=== PATIENT | female | born 1935 | race Caucasian/White ===

== ENCOUNTER → 2023-04-08 12:53 | Outpatient (REF) | payer MEDICARE, OTHER, SELFPAY | LOC: DHCBS MAIN 12:53 | PROVIDERS: ATTENDING PHYSICIAN Internal Medicine Cardiovascular Disease; FAMILY PHYSICIAN Internal Medicine | DX: I34.0 Nonrheumatic mitral (valve) insufficiency (principal) | CPT/HCPCS: 93306 ==

== ENCOUNTER 2023-06-12 10:38 | Emergency (ER) | payer MEDICARE, OTHER, SELFPAY ==
--- NOTE | 2023-06-12 10:48 | ED.GENMED ---
History of Present Illness
<Molly Chowdary SUPERVISOR TELEPHONE CLERKS - Last Filed: 06/13/23 09:14>
General
Chief Complaint: Heart Rate Problem
Source: patient and ambulance crew
Exam Limitations: none
Time Seen by Provider: 06/12/23 10:40
Nursing documentation reviewed up to this point in time: agreed with
History of Present Illness
History of Present Illness:
87-year-old female with history of atrial fibrillation on Xarelto, HTN, HLD, pacemaker, GERD, hypothyroid presents via EMS. Patient states around 7:30 AM she felt gradual onset of shortness of breath, dizziness and called EMS. En route EMS gave
her Cardizem 10 mg IV for a heart rate between 120 and 160. She also received normal saline solution IV 700 mL en route. She arrives with heart rate now 106 and she feels much better. She denies having chest pain.
Patient states she had ablation 'years ago' and has been in normal sinus rhythm since until today.
Past History
<Molly Chowdary, SUPERVISOR TELEPHONE CLERKS - Last Filed: 06/13/23 09:14>
Past History
ED Past Medical History: Arrthythmia, GERD, HTN, Valvular disease and Hypothyroidism
ED Past Surgical History: Cardiac (pacemaker) and Tonsilectomy
Social History
Tobacco: Non-smoker
Alcohol: None
Personal: Single
Living: assisted living
Review of Systems
<Molly Chowdary, SUPERVISOR TELEPHONE CLERKS - Last Filed: 06/13/23 09:14>
Review of Systems
Allergies reviewed?: Yes
All Other Systems: ROS reviewed and negative except as documented in HPI and ROS
Constitutional: Reports fatigue; Denies fever
Respiratory: Denies trouble breathing
Cardiac: Denies chest pain, diaphoresis or syncope
ABD/GI: Denies abdominal pain, nausea, vomiting or diarrhea
: Denies dysuria, frequency, difficulty voiding or urgency
Musculoskeletal: Reports no symptoms
Skin: Reports no symptoms
Neurological: Reports other ('a little lighheaded'); Denies headache or numbness
Phy Exam
<oMlly Chowdary SUPERVISOR TELEPHONE CLERKS - Last Filed: 06/13/23 09:14>
Physical Exam
Physical Exam:
GENERAL: No acute distress. A&Ox3.
CONSTITUTIONAL: Afebrile.
EYES: PERRL, conjunctivae normal
ENMT: moist mucus membranes, Pharynx nl
RESPIRATORY: Regular respirations, nonlabored, lungs clear.
CARDIOVASCULAR: Irregular rhythm. rate on bedside monitor 102-130's. A fib with intermittent paced beats. no murmurs, no rubs.
GI: Soft, nontender, normal BS
MUSCULOSKELETAL: Moves with ease. Well perfused. No edema
SKIN: Warm, dry, pink
PSYCH: Normal mood and affect. Well kept, interactive and appropriate
NEUROLOGIC: Awake, alert and oriented. No focal neurological deficits
Course
<Molly Chowdary, SUPERVISOR TELEPHONE CLERKS - Last Filed: 06/13/23 09:14>
Orders/Labs/Results
Orders:
Orders
06/12/23 10:47
Electrocardiogram (*1) Urgent
Reason for Study: Atrial Fibrillation
EKG- Treatment ONCE
06/12/23 10:48
CR Chest - 2 Views Urgent
Comment:
Reason For Exam: a fib rvr
06/12/23 11:15
Complete Blood Count/With Diff Urgent
06/12/23 11:24
EKG [Electrocardiogram (*1)] Urgent
Reason for Study: Abnormal EKG
EKG- Treatment ONCE
06/12/23 12:10
Comprehensive Metabolic Panel Urgent
NT-proBNP Urgent
Comment: ADD ON
TSH Reflex To Free T4 Urgent
Comment: ADD ON
Troponin I Urgent
06/12/23 12:49
Add On- LAB Urgent
Tests Added?: TSH Reflex to Free T4
06/12/23 13:45
Add On- LAB Urgent
Tests Added?: BNP
Abnormal Lab Results
06/12/23 06/12/23
11:15 12:10
RBC 3.94 L 10^6/uL
(4.20-5.40)
Hct 34.5 L %
(37.0-47.0)
MPV 10.6 H fL
(7.4-10.4)
Lymphocytes % 17.6 L %
(20.5-51.1)
Sodium 132 L mmol/L
(135-145)
Glucose 121 H mg/dl
(70-99)
AST 38 H U/L
(14-36)
06/12/23 11:15
06/12/23 12:10
Vital Signs
Initial and Last Documented VS:
Initial Vital Signs
Temp Pulse Resp BP Pulse Ox
97.7 F 109 20 124/74 95
06/12/23 10:57 06/12/23 10:57 06/12/23 10:57 06/12/23 10:57 06/12/23 10:57
Last Documented Vital Signs
Temp Pulse Resp BP Pulse Ox
97.7 F 73 23 122/69 94
06/12/23 10:57 06/12/23 14:07 06/12/23 14:00 06/12/23 14:07 06/12/23 14:00
<Klaus Vizcaino MD - Last Filed: 06/12/23 12:10>
Orders/Labs/Results
Orders:
Orders
06/12/23 10:47
Electrocardiogram (*1) Urgent
Reason for Study: Atrial Fibrillation
EKG- Treatment ONCE
06/12/23 10:48
CR Chest - 2 Views Urgent
Comment:
Reason For Exam: a fib rvr
06/12/23 11:15
Complete Blood Count/With Diff Urgent
06/12/23 11:24
EKG [Electrocardiogram (*1)] Urgent
Reason for Study: Abnormal EKG
EKG- Treatment ONCE
06/12/23 12:10
Comprehensive Metabolic Panel Urgent
NT-proBNP Urgent
Comment: ADD ON
TSH Reflex To Free T4 Urgent
Comment: ADD ON
Troponin I Urgent
06/12/23 12:49
Add On- LAB Urgent
Tests Added?: TSH Reflex to Free T4
06/12/23 13:45
Add On- LAB Urgent
Tests Added?: BNP
Abnormal Lab Results
06/12/23 06/12/23
11:15 12:10
RBC 3.94 L 10^6/uL
(4.20-5.40)
Hct 34.5 L %
(37.0-47.0)
MPV 10.6 H fL
(7.4-10.4)
Lymphocytes % 17.6 L %
(20.5-51.1)
Sodium 132 L mmol/L
(135-145)
Glucose 121 H mg/dl
(70-99)
AST 38 H U/L
(14-36)
06/12/23 11:15
06/12/23 12:10
Vital Signs
Initial and Last Documented VS:
Initial Vital Signs
Temp Pulse Resp BP Pulse Ox
97.7 F 109 20 124/74 95
06/12/23 10:57 06/12/23 10:57 06/12/23 10:57 06/12/23 10:57 06/12/23 10:57
Last Documented Vital Signs
Temp Pulse Resp BP Pulse Ox
97.7 F 73 23 122/69 94
06/12/23 10:57 06/12/23 14:07 06/12/23 14:00 06/12/23 14:07 06/12/23 14:00
<Molly Chowdary NP - Last Filed: 06/13/23 09:14>
MDM/Problems Addressed
Differential Diagnosis Includes:
Afib w RVR, Vtach RVR so she had Cardizem. She presents
MDM/Problems Addressed:
87-year-old female with history of atrial fibrillation on Xarelto, HTN, HLD, pacemaker, GERD, hypothyroid presents via EMS. Patient states around 7:30 AM she felt gradual onset of shortness of breath, dizziness and called EMS. En route EMS gave
her Cardizem 10 mg IV for a heart rate between 120 and 160. She also received normal saline solution IV 700 mL en route. She arrives with heart rate now 106 and she feels much better. She denies having chest pain.
Patient states she had ablation 'years ago' and has been in normal sinus rhythm since until today.
Irregular rhythm. rate on bedside monitor 102-130's. A fib with intermittent paced beats.
NAD
EKG showing atrial fibrillation with RVR and frequent ventricular paced complexes
Dr. Vizcaino at bedside.
Pacemaker interrogated and report pending.
1:40 PM
Labs with no clinically significant abnormality.
Initial troponin was hemolyzed so had to be redrawn: Troponin within normal limits
Chest x-ray: Radiology report reviewed: IMPRESSION:
Patchy airspace disease seen bilaterally suggests diffuse pneumonia, although there may be a component which is chronic. There appears to be a component of CHF as well.
Pt has hx of interstitial lung disease. Is on Lasix.Denies any worsening of her breathing status. Stable for discharge
Pulse ox 95% RA
Pt stable for discharge
Pacer interrogation report read and filed. Nothing needing immediate attention
BNP unremarkable
I made an appointment with Dr. Borja for the patient on June 17 at 3:40 PM. for follow up.
At discharge patient ambulated out with normal gait with a family member
<Molly Cohwdary SUPERVISOR TELEPHONE CLERKS - Last Filed: 06/13/23 09:14>
*Critical Care Note
Total Time (30-74mins, 75-104mins- exclusive of procedures): Not Applicable
ED Attending Note
<Molly Chowdary SUPERVISOR TELEPH[employer] CLERKS - Last Filed: 06/13/23 09:14>
-
Portions of this chart may have been created with voice recognition software.� Occasional wrong word or��sound alike� substitutions may have occurred due to the inherent limitations of voice recognition software.
<Klaus Vizcaino MD - Last Filed: 06/12/23 12:10>
ED Attending Note
Patient seen and examined by attending physician: Yes
ED Attending Note:
I have seen and evaluated the patient with a sgea-[id number] encounter. I have spoken to the advance practicer provider and involved in the medical history, the physical exam, medical decision making.
Evaluation and management service: agree unless noted differently below.
Results interpretation: agree unless noted differently below.
Focused HPI: 87-year-old female with a history of hypertension, hyperlipidemia, atrial fibrillation on Xarelto, pacemaker who follows with Dr. Borja for cardiology who presents to the emergency room for evaluation of dizziness and shortness of
breath, found to be in A-fib with RVR. She received 10 mg of IV diltiazem from EMS as well as 700 cc of normal saline. She denies any chest pain. Denies any other complaints. Reports compliance with all medications.
Physical exam: Awake and alert not in distress. Normotensive. Tachycardic with irregularly irregular rhythm. She has no tachypnea, breathing comfortably not in distress. She is afebrile. Appropriate saturation on room air. She has good pulses
in all extremities, no edema in her lower extremities.
Medical Decision Makin-year-old female presents with dizziness and shortness of breath since she woke up this morning; noted to be in A-fib with RVR. She does have a known history of A-fib but says she has not been in A-fib since an ablation
years ago. She follows with Dr. Borja for cardiology. Plan to place an IV check labs including a CBC and a CMP, troponin, thyroid studies. Check chest x-ray. Interrogate device. Monitor closely reassess after the above.
Shortly after initial assessment patient converted to atrial paced rhythm with heart rate in the 70s. Symptoms resolved with resolution of A-fib. Awaiting results of labs and chest x-ray but if workup reassuring and patient remains asymptomatic.
Will plan to likely discharge with cardiology referral given resolution of A-fib.
Discharge Plan
Departure
Patient Disposition: Home (Routine Discharge)
Date of Disposition: 06/12/23
Time of Disposition: 13:59
Patient with high blood pressure during this ER visit?: No
Condition: Good
Discharge Problem:
Atrial fibrillation with rapid ventricular response
Instructions: Atrial Fibrillation (DC)
Prescriptions:
No Action
diphenhydramine-acetaminophen 1 TAB tablet
1 tab PO HSPRN PRN (Reason: sleep)
cholecalciferol (vitamin D3) 1,000 UNITS tablet
1,000 units PO DAILY
atorvastatin 10 MG tablet
10 mg PO HS Qty: 0 0RF
metoprolol succinate 50 MG tablet extended release 24 hr
50 mg PO BID Qty: 0 0RF
furosemide [Lasix] 40 mg Tablet
40 mg PO DAILY
omeprazole 40 mg Capsule,Delayed Release(Dr/Ec)
40 mg PO DAILY
levothyroxine [Synthroid] 100 mcg Tablet
100 mcg PO DAILY
ascorbic acid (vitamin C) [Vitamin C] 500 mg Tablet
500 mg PO DAILY
Xarelto 20 mg Tablet
20 mg PO QPM
Referrals:
Kleber Borja MD [Active] - Keep scheduled appt
NONE,* [Active] -
Activity Restrictions/Additional Instructions:
As we discussed you converted from atrial fibrillation with rapid response to normal sinus, no further treatment needed.
I have made a follow up appointment for June 17 at 3:[address] Borja.
At that visit ask if it's ok to keep the June appointment for your pacemaker.
Return here immediately for chest pain, shortness of breath, feeling weak or dizzy or feeling sicker in any way.
Interventions
Interventions:
*Risk Screen - Suicide Last Done: 06/12/23 11:00
*General Assessment Last Done: 06/12/23 11:17
*Neglect/Abuse Screening Last Done: 06/12/23 11:00
ED- Fall Risk Assessment Last Done: 06/12/23 14:38
*ED COVID-19 Vaccine History Last Done: 06/12/23 11:17
*Nursing Disposition Last Done: 06/12/23 14:38
ED- Cardiac Assessment Last Done: 06/12/23 11:17
ED- Pulmonary Assessment Last Done: 06/12/23 11:17
Discharge Date and Time
Discharge Date/Time: 06/12/23 14:41
Print Language: [place]
[2023-06-12 10:57] VITALS: BP 124/74
[2023-06-12 11:00] VITALS: BP 118/85
[2023-06-12 11:26] LABS: % Basophils 0.6 % (0-2); % Eosinophils 1.6 % (0-6); % Immature Granulocytes 0.1 % (0-0.5); % Lymphocytes 17.6 % (20.5-51.1); % Monocytes 5.5 % (1.7-9.3); % Neutrophils 74.6 % (42.2-75.2); Absolute Basophils 0.1 10^3/uL (0-0.2); Absolute Eosinophils 0.1 10^3/uL (0-0.7); Absolute Lymphocytes 1.4 10^3/uL (1.2-3.4); Absolute Monocytes 0.4 10^3/uL (0.1-0.6); Absolute Neutrophils 5.9 10^3/uL (1.4-6.5); Hematocrit 34.5 % (37.0-47.0); Hemoglobin 12.2 g/dL (12.0-16.0); Mean Corp Hgb Conc. 35.4 g/dL (33.0-37.0); Mean Corpuscular Volume 87.6 fL (81.0-99.0); Mean Platelet Volume 10.6 fL (7.4-10.4); Nucleated Red Blood Cells % 0 %; Platelet Count 259 10^3/uL (130-400); Red Blood Cell Count 3.94 10^6/uL (4.20-5.40); Red Cell Dist. Width 13.4 % (11.5-14.5); White Blood Cell Count 7.9 10^3/uL (4.8-10.8)
[2023-06-12 12:32] LABS: ALT (SGPT) 20 U/L (0-35); AST (SGOT) 38 U/L (14-36); Albumin 4.1 g/dl (3.5-5.0); Alkaline Phosphatase 77 U/L (38-126); Blood Urea Nitrogen 15 mg/dl (7-17); Calcium 9.7 mg/dl (8.4-10.2); Carbon Dioxide 27 mmol/L (22-30); Chloride 101 mmol/L (98-107); Glucose 121 mg/dl (70-99); Potassium 4.4 mmol/L (3.5-5.1); Sodium 132 mmol/L (135-145); Total Bilirubin 0.7 mg/dl (0.2-1.3); Total Protein 7.8 g/dl (6.3-8.2); eGFR > 60.00
[2023-06-12 12:43] LABS: Troponin I < 0.012 ng/ml
[2023-06-12 14:07] VITALS: BP 122/69
[2023-06-12 14:43] LABS: TSH Reflex To Free T4 0.72 uIU/ml (0.47-4.68)
[2023-06-12 14:50] LABS: NT-proBNP 1210 pg/ml
== END 2023-06-12 14:41 | disposition home or self-care (01) ==
LOC: EMR 10:38
PROVIDERS: Registered Nurse; EMERGENCY PHYSICIAN Emergency Medicine; FAMILY PHYSICIAN Internal Medicine
DX: I48.91 Unspecified atrial fibrillation (principal); I10 Essential (primary) hypertension; E78.00 Pure hypercholesterolemia, unspecified; K21.9 Gastro-esophageal reflux disease without esophagitis; E03.9 Hypothyroidism, unspecified; Z79.01 Long term (current) use of anticoagulants
CPT/HCPCS: 99285; 93288; 71046; 80053; 83880; 84443; 84484; 85025; 93005

== ENCOUNTER 2023-07-02 11:32 | Day surgery (SDC) | payer MEDICARE, OTHER, SELFPAY ==
[2023-07-02] VITALS (10 sets, daily range): BP systolic 115–155; BP diastolic 57–73; BMI 21.8
--- NOTE | 2023-07-02 14:11 | ITS.CL.PACE ---
Hand Folder - Pacemaker Implant
Pacemaker Implant
Procedure Report:
Date of Procedure: July 02, 2023
Patient : [id number]
Procedure: Pacemaker Implantation.
Indication: Pacemaker generator at [employer]
Implants:
Pulse Generator: Medtronic; Model# W1 DR 01; SN: [id number]
RA Lead: Medtronic; Model# 5086 MRI; SN: [id number]
RV Lead: Medtronic; Model# 5086 MRI; SN: [id number]
Technique: A time out was performed. The procedure site was identified. The patient was anesthetized by the anesthesia service. Preoperative sedation was administered. The patient was prepped and draped in the usual fashion. Local anesthetic was
applied to the left prepectoral subcutaneous tissue. The chronic 3 inch incision was made 2.5 inches below the left clavicle. A subcutaneous pocket was entered with blunt and sharp dissection and hemostasis controlled with Bovie cautery. The
chronic generator was removed from the chronic leads and removed from the field. The new generator was brought to the field and secured to the chronic leads. The device and leads were placed in the chronic pocket which was subcutaneous. The leads
were appropriately attached to the device. The pocket was irrigated with antibiotic solution. The device and leads were placed in the pocket. The incision was closed in three layers with absorbable suture. The estimated blood loss was minimal. There
were no complications.
Lead Analysis:
RA lead: P: 1.2 mV; Threshold: 0.5 V @ 0.5 ms; Impedance: 380 ohms.
RV lead: R: 4.1 mV; Threshold: 1.0 V @ 0.5 ms; Impedance: 456 ohms.
Final Programming: AAIR�DDDR 60-130 beats a minute
Conclusion: Uncomplicated Medtronic pacemaker implant.
Recommendation: Routine post pacemaker care.
== END 2023-07-02 15:35 | disposition home or self-care (01) ==
LOC: CATH 11:32
PROVIDERS: ATTENDING PHYSICIAN Internal Medicine Cardiovascular Disease; FAMILY PHYSICIAN Family Medicine; OTHER PHYSICIAN Internal Medicine Cardiovascular Disease
DX: Z45.010 Encounter for checking and testing of cardiac pacemaker pulse generator [battery] (principal); I49.5 Sick sinus syndrome; I48.0 Paroxysmal atrial fibrillation; I10 Essential (primary) hypertension; E78.5 Hyperlipidemia, unspecified; I34.0 Nonrheumatic mitral (valve) insufficiency; I27.20 Pulmonary hypertension, unspecified; Z79.01 Long term (current) use of anticoagulants
CPT/HCPCS: 33228; C1785

== ENCOUNTER 2023-07-31 06:56 | Day surgery (SDC) | payer MEDICARE, OTHER, SELFPAY ==
[2023-07-26 08:53] VITALS: BMI 22.1
[2023-07-26 09:41] LABS: % Basophils 0.4 % (0-2); % Eosinophils 1.4 % (0-6); % Immature Granulocytes 0.3 % (0-0.5); % Lymphocytes 20.9 % (20.5-51.1); % Monocytes 9.2 % (1.7-9.3); % Neutrophils 67.8 % (42.2-75.2); Absolute Eosinophils 0.1 10^3/uL (0-0.7); Absolute Lymphocytes 1.5 10^3/uL (1.2-3.4); Absolute Monocytes 0.6 10^3/uL (0.1-0.6); Absolute Neutrophils 4.7 10^3/uL (1.4-6.5); Hematocrit 34.6 % (37.0-47.0); Hemoglobin 11.7 g/dL (12.0-16.0); Mean Corp Hgb Conc. 33.8 g/dL (33.0-37.0); Mean Corpuscular Hgb 30.2 pg (27.0-31.0); Mean Corpuscular Volume 89.4 fL (81.0-99.0); Mean Platelet Volume 9.3 fL (7.4-10.4); Nucleated Red Blood Cells % 0 %; Platelet Count 250 10^3/uL (130-400); Red Blood Cell Count 3.87 10^6/uL (4.20-5.40); Red Cell Dist. Width 13.7 % (11.5-14.5)
[2023-07-26 09:58] LABS: INR 1.73; PT 20.1 Sec (11.4-14.6)
[2023-07-26 10:45] LABS: ALT (SGPT) 16 U/L (0-35); AST (SGOT) 33 U/L (14-36); Albumin 3.9 g/dl (3.5-5.0); Alkaline Phosphatase 67 U/L (38-126); Blood Urea Nitrogen 10 mg/dl (7-17); Calcium 9.7 mg/dl (8.4-10.2); Carbon Dioxide 24 mmol/L (22-30); Chloride 93 mmol/L (98-107); Estimated Creatinine Clearance 54 ml/min; Glucose 99 mg/dl (70-99); Potassium 4.9 mmol/L (3.5-5.1); Sodium 127 mmol/L (135-145); Total Bilirubin 0.8 mg/dl (0.2-1.3); Total Protein 7.5 g/dl (6.3-8.2); eGFR > 60.00
--- NOTE | 2023-07-26 10:53 | HPS.HSE ---
Family Physician
-
Family Physician: Abelardo Garber DO
Chief Complaint
-
Mitral valve regurgitation.
History of Present Illness
The patient is an 87 year old female presenting today with a history of mitral valve regurgitation. Her valvular disease has been followed with serial echocardiograms over the course of several years. As of recently, she has reported
symptoms suggesting heart failure, specifically shortness of breath that is worse with exertion. It is suspected that her symptoms are stemming from her mitral regurgitation. She has noted some improvement in her shortness of breath with the start
of daily Furosemide. It is recommended, however, that she undergo a transesophageal echocardiogram and right and left cardiac catheterization to assess her need for a possible mitral valve repair or mitral clip in the near future. She denies any
current complaints today such as chest pain, shortness of breath at rest, nausea, vomiting, diarrhea, lightheadedness, dizziness, cough, sore throat, or fever.
Medical History
Past Medical History
Past Medical History: Reports Other
Additional Past Medical History:
1. Mitral valve regurgitation, moderate on echocardiogram 03/2023.
2. Hypertension.
3. Hyperlipidemia.
4. Non-obstructive coronary artery disease on previous cath.
5. Paroxysmal atrial fibrillation, status post ablation 2016; pharmacological therapy with Metoprolol Succinate, oral anticoagulation with Xarelto.
6. Sick sinus syndrome with syncope, status post Medtronic dual chamber pacemaker insertion, 2013, and generator change 07/02/2023.
7. Pulmonary hypertension.
8. Mild aortic regurgitation.
9. Venous varicosities.
10. Interstitial lung disease.
11. GERD.
12. Hiatal hernia.
13. Irritable bowel disease.
14. Fatty liver disease.
15. Hypothyroidism.
16. Mild anemia.
17. Chronic dizziness.
18. Osteopenia.
19. Hyponatremia, improving with recent fluid restriction and holding of Lexapro.
Past Surgical History: Reports Other
Additional Past Surgical History:
1. Atrial fibrillation ablation.
2. Medtronic dual chamber pacemaker insertion.
3. Dual chamber pacemaker generator change.
4. Cardiac catheterization.
5. Transesophageal echocardiogram.
6. Hemorrhoidectomy.
7. Multiple colonoscopies.
Social History
Tobacco: Non-smoker
Alcohol: None
Living: Alone (in a third floor apartment with an elevator. )
Family History
Family History: Not pertinent
Allergies / Home Medications
Allergy/Medication List:
Home medications:
1. Ascorbic acid 1500 mg p.o. daily.
2. Atorvastatin 10 mg p.o at bedtime.
3. Cholecalciferol 1000 units p.o. daily.
4. Escitalopram oxalate 10 mg p.o. at bedtime - on hold as of 07/26/2023 due to hyponatremia.
5. Fiber 6 1 tablet p.o. twice a day.
6. Furosemide 40 mg p.o. daily.
7. Levothyroxine 100 mcg p.o. daily.
8. Metoprolol Succinate 50 mg p.o. twice a day.
9. Omeprazole 40 mg p.o. daily.
10. Probiotic 1 tablet p.o. daily.
11. Xarelto 20 mg p.o. every evening.
Allergies: No known allergies.
Review of Systems
-
A 12 point ROS was completed and negative except as noted: Yes
Physical Exam
Vital Signs
Blood pressure 139/72. Heart rate 75. Respirations 18. Pulse ox 92% on room air, increasing to 94% with encouraged deep breathing.
Height 5 feet, 2.5 inches. Weight 55.7 kg. BMI 22.1.
Physical Exam
General: Well Developed, Well Nourished and No Apparent Distress
HEENT: NormoCephalic, Moist mucous membranes, Atraumatic and PERRLA
Respiratory: Decreased Breath Sounds
Cardiac: Regular Rhythm
GI: Soft, Non Tender and Non Distended
Musculoskeletal: No Edema and Normal Gait & Station
Skin: Warm and Dry
Neuro: AO x 3 and Nonfocal/grossly intact
Laboratory Results
-
07/26/23 09:03
07/26/23 09:03
Laboratory Results
PT 20.1 Sec (11.4-14.6) H 07/26/23 09:03
INR 1.73 07/26/23 09:03
Total Bilirubin 0.8 mg/dl (0.2-1.3) 07/26/23 09:
AST 33 U/L (14-36) 07/26/23 09:03
ALT 16 U/L (0-35) 07/26/23 09:03
Alkaline Phosphatase 67 U/L (38-126) 07/26/23 09:03
DIAGNOSTIC STUDIES as of 07/29/2023: Sodium 129.
EKG 07/26/2023: Atrial paced rhythm with prolonged AV conduction. T wave abnormality, consider inferior ischemia. Compared to the prior EKG of 06/12/2023, no significant change was found.
Echocardiogram 04/08/2023: Small left ventricle with mild left ventricular hypertrophy and preserved systolic function. Ejection fraction is 60-65%. Thickened mitral leaflets. Mitral annular calcification. Prolapse of the posterior leaflet with
moderate eccentric mitral regurgitation and dilated left atrium. Aortic sclerosis with mild aortic regurgitation. Normal right heart with pacing wire identified and severe pulmonary hypertension Pulmonary artery systolic pressure 68 mmHg. The
ascending aorta is 3.6 cm with mild atherosclerotic change.
Impression/Plan
-
IMPRESSION/PLAN:
1. Mitral valve regurgitation: The patient is in need of a transesophageal echocardiogram with Dr. Kleber Borja and a right and left cardiac catheterization with Dr. Chantelle Walker on 07/31/2023. The benefits and risks of both procedures have been
explained to the patient. The patient understands these risks and wishes to proceed.
2. Hyponatremia: The patient's sodium was noted to improve with the start of a 48 oz daily fluid restriction and the holding of her nightly Lexapro starting 07/26/2023. Her most recent results were discussed with Dr. Borja pre-operatively. She
can still proceed with her transesophageal echocardiogram and a right and left cardiac catheterization as planned. She will continue her fluid restriction and holding of Lexapro for now. Dr. Borja will arrange a repeat sodium test in the near
future.
[2023-07-29 10:08] LABS: Sodium 129 mmol/L (135-145)
[2023-07-31] VITALS (21 sets, daily range): BP systolic 83–169; BP diastolic 53–106
--- NOTE | 2023-07-31 07:46 | ITS.CL.CATH ---
Roll Plugger Machine Operator - Catheterization
Cardiac Catheterization
Procedure Report:
LEFT HEART CATHETERIZATION
Date of Procedure: July 31, 2023
Referring: Dante Borja
PROCEDURES:
1. Left catheterization, coronary angiogram.
2. Right heart catheterization.
3. Ultrasound-guided access
INDICATION: Patient is a 87-year-old female with past medical history of paroxysmal atrial fibrillation on chronic anticoagulation with Xarelto, sick sinus syndrome status post permanent pacemaker, LE's moderate eccentric mitral regurgitation with
progressive heart failure symptoms now being referred for a left and right heart catheterization to rule out obstructive CAD and obtain invasive hemodynamics.
ACCESS:
1. Right radial artery, 5 Swedish sheath, under ultrasound guidance.
2. Right brachial vein, 6 Swedish sheath
HEMODYNAMICS : (mmHg)
RA (m) : 8
RV (s/d,m) : 64/2, 10
PA (s/d, m) : 63/19, 37
PCWP (m) : 22
PA saturation: 62.0% on room air
AO saturation: 92.8% on room air
RA saturation: 60.8% on room air
Cardiac Output : 3.02 L/min
Cardiac Index : 1.93 L/min/m-2
Systemic vascular resistance: 2354 dsc^(-5)
Pulmonary vascular resistance: 5.64 rosa unit
Heart rate: 69 bpm
AO (s/d) : 124/71
LV (s/d) : 117/3
LVEDP : 11
CORONARY FINDINGS
DOMINANCE: Right
LEFT MAIN: The left main artery is a large-caliber vessel which gives rise to the left anterior sending artery and the left circumflex artery with mild ostial tapering but otherwise minimal luminal irregularities.
LEFT ANTERIOR DESCENDING: The left anterior descending artery is a medium to large caliber vessel which gives rise to 1 major diagonal branch as it courses through the anterior interventricular groove and wraps around the apex. There is minimal
luminal irregularities
CIRCUMFLEX: The left circumflex artery is a small to medium caliber vessel which gives rise to 1 major obtuse marginal branches with minimal luminal irregularities.
RIGHT CORONARY ARTERY: The right coronary artery is a large-caliber, dominant vessel which gives rise to the right posterior descending artery and the right posterolateral system. There is minimal luminal irregularities.
SEDATION: 48 minutes of procedural sedation was utilized. An independent medical field representative was present to assist with and help manage the patient's level of consciousness and physiologic status.
RADIATION SUMMARY: Fluoro Time (min): 5.0, Dose (mGy): 155.3, DAP (Gy.cm2) : 12.2
Closure Device:
1. Vascular band over right radial artery, 14 cc of air.
2. Manual pressure was held over the right brachial venous access site with successful hemostasis.
CONCLUSIONS
1. No obstructive coronary artery disease.
2. Elevated right and left-sided filling pressures with severe pulmonary hypertension, significantly elevated systemic and pulmonary vascular resistance.
RECOMMENDATIONS
1. Medication optimization to improve filling pressures and systemic vascular resistance.
2. Structural heart team discussion with review of GONZALO to assess appropriateness and candidacy for possible mitral valve intervention.
3. Aggressive management of cardiovascular risk factors.
4. Wean radial band per protocol.
Copy to: Dante Borja
Chantelle Walker MD, FAC, [facility]
[2023-07-31] MEDS: ASPIRIN 325 MG PO (09:54)
[2023-07-31] MEDS: LASIX 40 MG IV (13:01)
== END 2023-07-31 15:45 | disposition home or self-care (01) ==
LOC: CATH 06:56
PROVIDERS: ATTENDING PHYSICIAN Internal Medicine Cardiovascular Disease; FAMILY PHYSICIAN Family Medicine; OTHER PHYSICIAN Physician Assistant
DX: I25.10 Atherosclerotic heart disease of native coronary artery without angina pectoris (principal); R06.02 Shortness of breath; I50.9 Heart failure, unspecified; I11.0 Hypertensive heart disease with heart failure; E78.5 Hyperlipidemia, unspecified; Z98.890 Other specified postprocedural states; I48.0 Paroxysmal atrial fibrillation; I49.5 Sick sinus syndrome; R55 Syncope and collapse; Z95.0 Presence of cardiac pacemaker; I27.20 Pulmonary hypertension, unspecified; I08.3 Combined rheumatic disorders of mitral, aortic and tricuspid valves; I83.90 Asymptomatic varicose veins of unspecified lower extremity; J84.9 Interstitial pulmonary disease, unspecified; K21.9 Gastro-esophageal reflux disease without esophagitis; K44.9 Diaphragmatic hernia without obstruction or gangrene; K58.9 Irritable bowel syndrome, unspecified; K76.0 Fatty (change of) liver, not elsewhere classified; E03.9 Hypothyroidism, unspecified; D64.9 Anemia, unspecified; M85.80 Other specified disorders of bone density and structure, unspecified site; R42 Dizziness and giddiness; E87.1 Hypo-osmolality and hyponatremia; Z79.899 Other long term (current) drug therapy; Z79.890 Hormone replacement therapy; Z79.01 Long term (current) use of anticoagulants
CPT/HCPCS: 99152; 99153; 36415; 80053; 84295; 85025; 85610; 93005; 93312; 93320; 93325; 93460; C1894; Q9967

== ENCOUNTER 2023-09-09 15:16 | Inpatient (IN) | payer MEDICARE, OTHER, SELFPAY ==
--- NOTE | 2023-09-02 08:35 | HPS.HSE ---
Addendum entered and electronically signed by Frida Wynne PA-C 09/10/23 13:17:
This document is to serve as a cardiothoracic surgery consult for the admission of 09/09/2023
Patient was admitted on Saturday09/09/2023 with progressing and worsening acute on chronic heart failure with preserved ejection fraction. Patient presented to the emergency department and was noted to be short of breath and having difficulty
breathing. Discussion was had with cardiology as well as attending physician Dr. Sullivan. Patient was admitted to the hospitalist service and Cardiology was consulted. She was started on IV diuresis and her home Apixaban was held.
Patient will continue original plan and remain in house, and undergo her procedure as originally scheduled. She will be taken for Mitraclip on 09/11/23.
Original Note:
Family Physician
-
Family Physician: Abelardo Garber DO
Cardiology: Dr. Alessandro Borja
Chief Complaint
-
Pre-op history and physical for QIANA
History of Present Illness
Joann Henson is an 87-year-old female with known mitral valve insufficiency. She recently underwent a transesophageal echocardiogram which demonstrated prolapsing and a small flail segment of the posterior leaflet at the A2 scallop. The jet is
complex with mostly anterior component. The annulus is dilated AP dimension as well as a wide functional view. The left atrium is significantly enlarged. The insufficiency is rated as severe. Left ventricular ejection fraction is preserved at 60%.
Mitral valve area is over 4 cm2. Mean gradient is 11 mmHg. There is mild concomitant aortic valve insufficiency and atrial fibrillation. Her left heart cath demonstrated severe pulmonary hypertension with systolic PA pressures in the 60s. Her wedge
was 22. Cardiac index was mildly depressed at 1.93. LVEDP was essentially normal at 11 mmHg. There is no significant coronary artery disease. From a symptomatology standpoint she describes mild to moderate SOB with exertion which takes her about 5
minutes to recover. Her baseline functional status is very good and independent. She lives alone in independent living. In comparison to a year ago she feels that her clinical status has declined progressively as she cannot do all her ADLs as
quickly as she would like to. She tells me she has progressively slowed down in all of her activities especially in the last 3-4 months
Medical History
Past Medical History
Past Medical History: Reports Arrhythmia (Paroxysmal A-Fib), CAD (minimal non-obstructive), CHF, GERD, HTN, Hypothyroidism and Other (Hyperlipidemia, Osteopenia, sick sinus syndrome, Interstitial Lung disease)
Past Surgical History: Reports Other (Hemorrhoidectomy, PPM(12/09/2013), Ablation (10/2016))
Social History
Tobacco: Non-smoker
Alcohol: None
Drug: None
Personal:
Living: Alone
Employment: Retired
Family History
Family History: CAD (father) and Cancer (Breast cancer(mother))
Allergies / Home Medications
Allergies reflects when Allergies were last updated in [facility].
Home Medications with original date entered in [facility]
Allergy/Medication List:
Medications:
Atorvastatin Calcium 10 MG Tablet 1 tablet Orally Once a day
Fiber - Tablet as directed Orally
Lasix(Furosemide) 40 MG Tablet 1 tablet Orally Twice A Day
Levothyroxine Sodium 100 MCG Tablet TAKE 1 TABLET EVERY DAY
Losartan Potassium 25 MG Tablet 1 tablet Orally Once a day
Omeprazole 40 MG Capsule Delayed Release TAKE 1 CAPSULE EVERY DAY
Probiotic 1-250 BILLION-MG Capsule as directed Orally Once a Day
Toprol XL 50 MG Tablet Extended Release 24 Hour 1 tablet Orally Twice a Day
Vitamin C 1000 MG Tablet 1 tablet Orally Once a Day
Vitamin D3 1000 UNIT Capsule 1 capsule Orally Once a day
Xarelto(Rivaroxaban) 20 MG Tablet 1 tablet Orally Once a day
Allergies:
NKDA
Review of Systems
-
History Source: Patient
Constitutional: Reports Fatigue
EENT: Reports No Symptoms
Respiratory: Reports No Symptoms
Cardiac: Reports No Symptoms; Denies Chest Pain or Palpitations
Abdomen/GI: Reports No Symptoms; Denies Nausea, Vomiting or Diarrhea
: Reports No Symptoms; Denies Dysuria, Frequency or Difficulty Voiding
Musculoskeletal: Reports No Symptoms
Skin: Reports No Symptoms
Neurological: Reports No Symptoms
Endocrine: Reports No Symptoms
Hematologic/Lymphatic: Reports No Symptoms
Psych: Reports No Symptoms
Physical Exam
Physical Exam
General: Well Developed, Well Nourished and No Apparent Distress
HEENT: NormoCephalic and Moist mucous membranes
Respiratory: Rales (bilateral bases) and Non Labored Respirations; No Wheezes, Rhonchi or Crackles
Cardiac: S1/S2, Regular Rhythm and Murmur (2/6 systolic LSB); No Peripheral Edema
Breast: Deferred by me
GI: Soft, Non Tender, Non Distended and Normal Bowel Sounds
Rectal: Deferred by Provider
Genito-urinary: Deferred by me
Musculoskeletal: No Clubbing, No Cyanosis and No Edema
Skin: Warm and Dry; No Rash or Ulcers
Neuro: AO x 3, No Motor Deficits and Nonfocal/grossly intact
Hematologic/Lymphatic: No Lymphadenopathy
Psych: Calm and Intact Judgment/Insight
Laboratory Results
-
09/02/2023:
H/H: 12.5/36.5
Platelets: [id number]
WBC: 8.5
BUN/Creat: 14/0.8 GFR >60
Data Reviewed
-
Diagnostic Radiology: Report Reviewed by me (Cardiomegaly. Widespread prominent bilateral pulmonary interstitial markings which may be chronic. Unfortunately, acute superimposed upon chronic interstitial process such as edema or pneumonitis cannot
be excluded.--> Patient with known history of Interstitial Lung Disease)
Medical Tests (Nuc Med, Echo, EKG etc): Report Reviewed by me (EKG)
Lab Data: Labs Reviewed by me
Old Records: Reviewed (CT surgery consult, Cardiology notes)
Impression/Plan
-
IMPRESSION:
Severe Mitral Regurgitation
PLAN:
-Mitraclip (QIANA) on 09/11/2023
-Will hold Xarelto with last dose on 09/08/2023. Will load with ASA 325mg 09/08 and will kim ASA 81mg 09/09 and 09/10. Resume Xarelto post procedure.
-0530 arrival on 09/10. Patient is aware she will receive a phone call 09/09 to confirm arrival time and answer questions.
-POD #1/#30 echocardiogram
-Cardiac rehab consult
[2023-09-09] VITALS (8 sets, daily range): BP systolic 112–139; BP diastolic 55–76; BMI 20.4
--- NOTE | 2023-09-09 13:13 | ED.GENMED ---
History of Present Illness
General
Chief Complaint: Breathing Problem
Source: patient and records
Exam Limitations: none
Time Seen by Provider: 09/09/23 13:05
Nursing documentation reviewed up to this point in time: agreed with
History of Present Illness
History of Present Illness:
87 female
sob, acute on chronic
known ILD, mitral valve disease
scheduled for mitral repair this week
cardiology Walker/Gryzwak
no fevers
no edema
sats low in triage
Past History
Past History
ED Past Medical History: Arrthythmia, GERD, HTN, Valvular disease and Hypothyroidism
ED Past Surgical History: Cardiac (pacemaker) and Tonsilectomy
Social History
Tobacco: Non-smoker
Alcohol: None
Drug: None
Personal: Single
Living: assisted living
Employment: Retired
Review of Systems
Review of Systems
All Other Systems: Not applicable
Constitutional: Denies fever or fatigue
Respiratory: Reports trouble breathing
Cardiac: Reports no symptoms
ABD/GI: Reports no symptoms
: Reports no symptoms
Musculoskeletal: Reports no symptoms
Skin: Reports no symptoms
Neurological: Reports no symptoms
Phy Exam
General Physical Exam
General Presentation: mild distress
Cardiovascular Exam
Cardiovascular Exam: systolic murmur
Systolic Murmur: 3/6
Heart Sounds: normal
Pulmonary Exam
Pulmonary Exam: decreased breath sounds
Neurological Exam
Neurological Exam: alert, oriented x3 and no motor deficits
Mental
Mental Status: oriented to person, oriented to place and usual mental status
Describe Speech: normal speech
Musculoskeletal Exam
Musculoskeletal Exam: no edema
Skin Exam
Skin Exam: normal color
Psychiatric Exam
Psychiatric Exam: normal mood/affect
Scores
Heart Failure Risk
Heart Failure Risk Score: Yes
History of Stroke or TIA: No
History of intubation for respiratory distress: No
Heart rate on ED arrival >/= 110: No
SaO2 <90% on arrival on room air: Yes
HR >/=110 during 3min walk test (or too ill to perform test): Yes
ECG has acute ischemic changes: No
Urea >/=12mmol/L (BUN 33.6mg/dL): No
Serum CO2>/=35mmol/L: No
Troponin I or T elevated to MN Level (0.4mg/dL): No
NT-proBNP >/=5,000ng/L (5,000pg/ml): Yes
HF Risk Score: 4
Admission Status: HIGH RISK 26.1% Consider SNF treatment or admission to hospital
Course
Orders/Labs/Results
Orders:
Orders
09/09/23 13:11
Electrocardiogram (*1) Stat
Reason for Study: Other
Other Reason for Exam: chest pain
Cardiac Monitoring- Treatment ONCE
EKG- Treatment ONCE
CR Chest Portable - 1 View Urgent
Comment:
Reason For Exam: sob
Reason Study Needs to be Portable: Patient Unstable
09/09/23 13:28
Basic Metabolic Panel Urgent
Complete Blood Count/With Diff Urgent
NT-proBNP Urgent
PTT Urgent
Prothrombin Time Urgent
Troponin I Urgent
09/09/23 14:23
Furosemide [Lasix] 80 mg IV NOW STA
Abnormal Lab Results
09/09/23
13:28
RBC 4.00 L 10^6/uL
(4.20-5.40)
Hct 34.5 L %
(37.0-47.0)
Absolute Neuts (auto) 7.3 H 10^3/uL
(1.4-6.5)
Absolute Monos (auto) 0.8 H 10^3/uL
(0.1-0.6)
Lymphocytes % 17.5 L %
(20.5-51.1)
PT 21.2 H Sec
(11.4-14.6)
APTT 44.8 H Sec
(23.4-35.0)
Sodium 128 L mmol/L
(135-145)
Chloride 94 L mmol/L
(98-107)
Glucose 105 H mg/dl
(70-99)
09/09/23 13:28
09/09/23 13:28
Vital Signs
Initial and Last Documented VS:
Initial Vital Signs
Temp Pulse Resp BP Pulse Ox
97.5 F 78 18 112/60 85
09/09/23 13:01 09/09/23 13:01 09/09/23 13:01 09/09/23 13:01 09/09/23 13:01
Last Documented Vital Signs
Temp Pulse Resp BP Pulse Ox
97.5 F 74 35 122/55 100
09/09/23 13:01 09/09/23 14:00 09/09/23 14:00 09/09/23 14:00 09/09/23 14:00
MDM/Problems Addressed
Differential Diagnosis Includes:
chf, pna, less likley pe, ILD
MDM/Problems Addressed:
sob
Chronic conditions affecting care:
MV, ild
Acute Exacerbation and/or Progression of Chronic Illness:
mv ild
*EKG
Interpreted by ED Provider?: Yes
Interpretation: abnormal
Comparison EKG: no comparison EKG present
Heart Rate: 78
Rate: normal
Rhythm: sinus
Ischemia: non-specific ST changes
*Ceramic Tile Installation Helper Interpretation
Rate: normal
Interpretation: normal
Heart Rate: 78
Rhythm: sinus
*Critical Care Note
Total Time (30-74mins, 75-104mins- exclusive of procedures): 31
Data Reviewed
Review of Other/Old Records Reveals: Labs and Progress Notes
Source: patient and records
Further Testing Considered But Not Given:
chest CT
Patient Management
Social determinants of health affecting care: Living situation
Discussion with other providers: Hospitalist and Middle Card Tender
Escalation/DeEscalation of care consider admission/obs:
pt requires admission
ED Attending Note
-
Portions of this chart may have been created with voice recognition software.� Occasional wrong word or��sound alike� substitutions may have occurred due to the inherent limitations of voice recognition software.
Discharge Plan
Departure
Patient Disposition: Admit
Date of Disposition: 09/09/23
Time of Disposition: 14:19
Admit to: IVU
Presentation/result/management discussed w/ accepting MD/DO: Hospitalist
Patient with high blood pressure during this ER visit?: No
Condition: Fair
Discharge Problem:
Hypoxia, Mitral valve insufficiency
Prescriptions:
No Action
cholecalciferol (vitamin D3) 1,000 UNITS tablet
1,000 units PO DAILY
atorvastatin 10 MG tablet
10 mg PO HS Qty: 0 0RF
metoprolol succinate 50 MG tablet extended release 24 hr
50 mg PO BID Qty: 0 0RF
omeprazole 40 mg Capsule,Delayed Release(Dr/Ec)
40 mg PO DAILY
levothyroxine [Synthroid] 100 mcg Tablet
100 mcg PO DAILY
ascorbic acid (vitamin C) [Vitamin C] 1,000 mg Tablet
1,000 mg PO DAILY
Fiber 6 1,000 mg Tablet
4 tab PO PRN PRN (Reason: constipation)
losartan 25 mg tablet
25 mg PO DAILY Qty: 90 5RF
furosemide [Lasix] 40 mg Tablet
40 mg PO BID Qty: 0 0RF
cranberry
1 cap PO DAILY
aspirin 81 mg Tablet,Delayed Release (Dr/Ec)
243 mg PO ONCE
Patient Comments:
09/09/23: Patient took 3 baby aspirins before coming into ED, per instruction from her community case manager.
Visbiome 112.5 billion cell Capsule
1 cap PO DAILY
Referrals:
Abelardo Garber DO [Family Provider] -
Interventions
Interventions:
*Risk Screen - Suicide Last Done: 09/09/23 13:01
*General Assessment Last Done: 09/09/23 13:01
*Neglect/Abuse Screening Last Done: 09/09/23 13:01
ED- Fall Risk Assessment Last Done: 09/09/23 13:40
ED- Cardiac Assessment Last Done: 09/09/23 13:39
ED- Pulmonary Assessment Last Done: 09/09/23 13:40
Discharge Date and Time
Print Language: GREEK
[2023-09-09 13:41] LABS: % Basophils 0.5 % (0-2); % Immature Granulocytes 0.3 % (0-0.5); % Lymphocytes 17.5 % (20.5-51.1); % Monocytes 8.1 % (1.7-9.3); % Neutrophils 71.6 % (42.2-75.2); Absolute Basophils 0.1 10^3/uL (0-0.2); Absolute Eosinophils 0.2 10^3/uL (0-0.7); Absolute Lymphocytes 1.8 10^3/uL (1.2-3.4); Absolute Monocytes 0.8 10^3/uL (0.1-0.6); Absolute Neutrophils 7.3 10^3/uL (1.4-6.5); Hematocrit 34.5 % (37.0-47.0); Hemoglobin 12.3 g/dL (12.0-16.0); Mean Corp Hgb Conc. 35.7 g/dL (33.0-37.0); Mean Corpuscular Hgb 30.8 pg (27.0-31.0); Mean Corpuscular Volume 86.3 fL (81.0-99.0); Mean Platelet Volume 9.4 fL (7.4-10.4); Nucleated Red Blood Cells % 0 %; Platelet Count 270 10^3/uL (130-400); Red Cell Dist. Width 13.8 % (11.5-14.5); White Blood Cell Count 10.2 10^3/uL (4.8-10.8)
[2023-09-09 13:54] LABS: INR 1.85; PT 21.2 Sec (11.4-14.6)
[2023-09-09 13:55] LABS: APTT 44.8 Sec (23.4-35.0)
[2023-09-09 14:01] LABS: NT-proBNP 3750 pg/ml; Troponin I < 0.012 ng/ml
[2023-09-09 14:07] LABS: Blood Urea Nitrogen 14 mg/dl (7-17); Glucose 105 mg/dl (70-99); Sodium 128 mmol/L (135-145); eGFR > 60.00
[2023-09-09 14:08] LABS: Calcium 9.8 mg/dl (8.4-10.2); Carbon Dioxide 27 mmol/L (22-30); Chloride 94 mmol/L (98-107)
[2023-09-09] MEDS: LASIX 80 MG IV (14:32)
--- NOTE | 2023-09-09 14:49 | CON.CAR ---
Addendum entered and electronically signed by Baltazar Carey MD 09/09/23 16:45:
Attending addendum: Patient seen and examined. PA note reviewed and findings independently confirmed by me. Briefly, this is a 87-year-old female with a past medical history notable for idiopathic pulmonary fibrosis, paroxysmal atrial
fibrillation, and severe mitral regurgitation. She is scheduled for transcatheter [id number] mitral valve repair later this week but presents to [facility] for evaluation of progressive shortness of breath. Her symptoms have worsened
over the past week or so. She states that she had been able to go to the grocery store and walk [employer] within the past several weeks. However, over the past week or so she has noticed a progressive decline in her functional capacity and is now
short of breath when walking across the room or walking too far within the house. She states that she has been drinking a lot of fluid to counterbalance her furosemide. She states that she has been drinking water, vitamin water, and Gatorade to
replace her electrolytes that she was losing with the Lasix.
GEN: AAO x 3. No acute distress. She is pleasant and conversant. Speaking in full sentences
HEENT: NC/AT, sclera are anicteric, hearing and nares are normal. MMM
LUNGS: Fine crackles from base to apex consistent with diagnosis of pulmonary fibrosis No wheezing
CV: Regular rate and rhythm. Normal S1/S2. No S3, No S4. Murmur: Holosystolic murmur noted throughout the precordium
ABD : Soft, NT, ND, Bowel sounds are present.
EXT: No CCE.
NEURO: No focal neurologic deficits
RECOMMENDATIONS
-Severe mitral regurgitation with plans transcatheter [id number] repair on 09/11/2023
-IV diuresis with 40 mg IV furosemide twice daily
-She will need heart failure education as she has been drinking electrolyte fluids and excess volume at home
-Hold apixaban for 48 hours before the interventional transcatheter [id number] procedure on 09/10
-Will continue to follow
Original Note:
Consultation
Consultation Request
Date/Time Consultation Requested: 09/09/2023
Date/Time Consultation Performed: 09/09/2023
Requesting Provider: Dr. Oro
Performing Provider: Dr. Hope
Reason for Consultation: CHF
Medical History
-
History of Present Illness:
HPI: Joann is an 87-year-old female with past medical history of paroxysmal atrial fibrillation, chronic HFpEF, sick sinus syndrome status post permanent pacemaker implantation, nonobstructive CAD, hypothyroidism, hypertension, hyperlipidemia, and
GERD. She has severe mitral regurgitation in addition it has been increasingly symptomatic with this. As outpatient, she has been arranged for MitraClip procedure which is currently scheduled for 09/11/2023. Over the past week, she has had
progressively worsening shortness of breath. She called the cardiology office today to report her symptoms and she was instructed to come to [facility] ER for evaluation and optimization prior to planned procedure. Workup in the emergency room reveals
evidence of acute heart failure. proBNP elevated at 3750. Her chest x-ray shows pulmonary edema. She was given a dose of IV Lasix in the ER and has been admitted for diuresis prior to MitraClip later this week.
PMH:
Paroxysmal atrial fibrillation
s/p PVI 11/08/2016
Chronic Xarelto anticoagulation
Chronic HFpEF
Severe MR
SSS s/p PPM 11/05/2013
Nonobstructive CAD
Hypothyroidism
Hypertension
Hyperlipidemia
GERD
Past Medical History
Past Medical History: Other (In HPI)
Past Surgical History: Cardiac (PVI 10/2016, PPM 10/2013)
Social History
Tobacco: Non-Smoker
Alcohol: None
Drug: None
Personal:
Living: Assisted Living
Employment: Retired
Family History
Family History: Reviewed & Not Pertinent
Allergies / Home Medications
Allergy/AdvReac Type Severity Reaction Status Date / Time
No Known Allergies Allergy Verified 09/05/23 15:47
�Medication �Instructions �Recorded �Confirmed �Type
cholecalciferol (vitamin D3) 25 1,000 units PO DAILY 08/01/16 09/09/23 History
mcg (1,000 unit) tablet
atorvastatin 10 mg tablet 10 mg PO HS ##0 11/09/16 09/09/23 Rx
metoprolol succinate 50 mg 50 mg PO BID ##0 11/09/16 09/09/23 Rx
tablet,extended release 24 hr
levothyroxine 100 mcg tablet 100 mcg PO DAILY 06/12/23 09/09/23 History
(Synthroid)
omeprazole 40 mg capsule,delayed 40 mg PO DAILY 06/12/23 09/09/23 History
release
ascorbic acid (vitamin C) 1,000 mg 1,000 mg PO DAILY 07/02/23 09/09/23 History
tablet (Vitamin C)
qyay-ctd-weltm-rwurpgilt-heiovfgj-togq-pectin 4 tab PO PRN PRN constipation 07/02/23 09/09/23 History
1,000 mg tablet (Fiber 6)
furosemide 40 mg tablet (Lasix) 40 mg PO BID #0 tabs 07/31/23 09/09/23 Rx
losartan 25 mg tablet 25 mg PO DAILY #90 tabs 07/31/23 09/09/23 Rx
cranberry 1 cap PO DAILY 09/05/23 09/09/23 History
Lactobac no.2-Bifidobac no.1-S. 1 cap PO DAILY 09/09/23 09/09/23 History
thermo 112.5 billion cell capsule
(Visbiome)
aspirin 81 mg tablet,delayed 243 mg PO ONCE 09/09/23 09/09/23 History
release
Review of Systems
-
History Source: Patient
All other systems: Negative unless noted
Physical Exam
Vital Signs
Temp Pulse Resp BP Pulse Ox
97.5 F 74 35 122/55 100
09/09/23 13:01 09/09/23 14:00 09/09/23 14:00 09/09/23 14:00 09/09/23 14:00
Lab Results
09/09/23 13:28
09/09/23 13:28
Troponin I < 0.012 ng/ml 09/09/23 13:28
Btz-L-Izivxsrkdxo Pept 3750 pg/ml 09/09/23 13:28
Physical Exam
General: Well Developed, Well Nourished and No Apparent Distress
HEENT: Normocephalic, Anicteric and Moist Mucous Membranes
Respiratory: Crackles and Non Labored Respirations
Cardiac: S1/S2, Regular Rhythm and Murmur
Musculoskeletal: No Clubbing, No Cyanosis and No Edema
Skin: Warm and Dry
Neuro: AO x 3 and Nonfocal/Grossly Intact
Psych: Calm
Impression / Plan
-
PCP: Dr. Garber
Cardiology: Dr. Borja
Impression:
Presented with SOB
Acute on chronic HFpEF
Paroxysmal atrial fibrillation
s/p PVI 11/08/2016
Chronic Xarelto anticoagulation
Severe MR
SSS s/p PPM 11/05/2013
Nonobstructive CAD
Hypothyroidism
Hypertension
Hyperlipidemia
GERD
Echo 04/08/2023: EF 60 to 65%, mild LVH, prolapse of posterior mitral leaflet with moderate eccentric MR, aortic sclerosis with mild AI, aortic sclerosis with mild AI, severe pulmonary hypertension, estimated PAP 68 mmHg
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
Plan:
-She has known severe mitral regurgitation and is planned for MitraClip 09/11/2023. Presented with worsening shortness of breath for 1 week.
-In acute heart failure on arrival. Continue diuresis. Given 80 mg of IV Lasix in ER.
-Continue IV Lasix 40 mg twice daily. Creatinine stable at 0.9. Follow daily weights, I&O's.
-Known paroxysmal atrial fibrillation. A paced on review of EKG.
-Xarelto on hold for procedure 09/11/2023.
-Continue losartan and Toprol. Blood pressure and heart rate are stable.
-Troponin negative x 1. Denies chest pain.
-On 2 L nasal cannula. Wean as able.
HPI: Joann is an 87-year-old female with past medical history of paroxysmal atrial fibrillation, chronic HFpEF, sick sinus syndrome status post permanent pacemaker implantation, nonobstructive CAD, hypothyroidism, hypertension, hyperlipidemia, and
GERD. She has severe mitral regurgitation in addition it has been increasingly symptomatic with this. As outpatient, she has been arranged for MitraClip procedure which is currently scheduled for 09/11/2023. Over the past week, she has had
progressively worsening shortness of breath. She called the cardiology office today to report her symptoms and she was instructed to come to [facility] ER for evaluation and optimization prior to planned procedure. Workup in the emergency room reveals
evidence of acute heart failure. proBNP elevated at 3750. Her chest x-ray shows pulmonary edema. She was given a dose of IV Lasix in the ER and has been admitted for diuresis prior to MitraClip later this week.
Data Reviewed
-
EKG: Tracing Personally Visualized and interpreted
Radiology: Report Reviewed by me
Labs: Labs Reviewed by me
Old Records: Reviewed
--- NOTE | 2023-09-09 14:59 | HPS.HSE ---
Addendum entered and electronically signed by Ron Collazo MD 09/09/23 16:01:
I personally performed a history and physical exam of the patient and discussed management with the resident. I reviewed the resident's note and agree with the documented findings and plan of care HPI/CC.
87-year-old female who presents with a chief complaint of shortness of breath.
122/55, 74, 35, 97.5 �F, 97% 2L NC O2
NAD, awake and alert, appears chronically ill/malnourished
RRR, normal S1/S2, no JVD, 2/6 holosystolic murmur
B/L rales in bases and to a lesser extent midlung whitehead
+BS/soft/NT/ND
CN2-12 intact
no LE edema
ProBNP 3750
Trop < 0.012
CXR: Persistent, unchanged patchy bilateral airspace opacities which may represent multifocal pneumonia, pulmonary edema, underlying interstitial lung disease, or some combination thereof. Findings are grossly unchanged since 09/02/2023. No new focal
consolidation.
ECG (read by me): A-paced with PVCx @ 77, nl axis, 1st deg ABV (210ms), nl QRS/QTc, TWi III, aVF, V3-V4
07/31/23 LHC/RHC: No obstructive CAD, elevated right left-sided filling pressures with severe pulmonary hypertension, significantly elevated systemic and pulmonary vascular resistance.
07/31/23 GONZALO: EF 60-65%, normal RV sz/fxn. Thickened mitral leaflets with bileaflet prolapse. 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 Severe mitral regurgitation. Mild AR/TR.
Acute HFpEF:
-h/o PPM due to SSS
-exacerbated by severe MR
-not on NC O2 at home, 85% on RA on arrival, was on 4L NC O2, now down to 2L NC O2
-Lasix 80mg IV given in ER
-c/s cards
-cont Lasix 40mg IV Q12H
-daily wts, I/Os
-cont BB
-case discussed with Dr. Hope. For Mitraclip on 09/11/23
-note, K hemolyzed, recheck K (has been high in the past)
PAF:
-holding Xarelto for Mitraclip
-case discussed with Dr. Sullivan, OK for Lovenox 40mg SC BID until OR
Essential HTN:
-cont BB/ARB
Acute on chronic hyponatremia:
-Follow sodium with diuresis
ILD, not in acute exac
Original Note:
Family Physician
-
Family Physician: Abelardo Garber,
Chief Complaint
-
Shortness of Breath
History of Present Illness
87 year old female with known PMHx of ILD, Mitral valve regurg., paroxysmal atrial fibrillation, chronic HFpEF, sick sinus syndrome status post permanent pacemaker implantation, nonobstructive CAD, hypothyroidism, hypertension, hyperlipidemia, and
GERD presenting today with c/o Shortness of breath for 1-2 weeks with progressive worsening. Her valvular disease has been followed by cardiology and she is scheduled for a procedure(MitraClip) for this coming saturday09/11/23 at with
Aaron/Lakshmi. She denies any chest pain, nausea, vomiting, diarrhea, lightheadedness, dizziness, cough, sore throat, or fever.
Medical History
Past Medical History
Past Medical History: Reports Arrhythmia, GERD, HTN, Hypercholesterolemia, Hypothyroidism and Valvular Disease
Past Surgical History: Reports Cardiac (Pacemaker) and Tonsilectomy
Social History
Tobacco: Non-smoker
Alcohol: None
Drug: None
Employment: Retired
Family History
Family History: Not pertinent
Allergies / Home Medications
Allergies reflects when Allergies were last updated in [employer].
Home Medications with original date entered in [employer]
Allergy/Medication List:
Allergies
Allergy/AdvReac Type Severity Reaction Status Date / Time
No Known Allergies Allergy Verified 09/05/23 15:47
Home Medications
cholecalciferol (vitamin D3) 25 mcg (1,000 unit) tablet 1,000 units PO DAILY 08/01/16
atorvastatin 10 mg tablet 10 mg PO HS ##0 11/09/16
metoprolol succinate 50 mg tablet,extended release 24 hr 50 mg PO BID ##0 11/09/16
levothyroxine 100 mcg tablet (Synthroid) 100 mcg PO DAILY 06/12/23
omeprazole 40 mg capsule,delayed release 40 mg PO DAILY 06/12/23
ascorbic acid (vitamin C) 1,000 mg tablet (Vitamin C) 1,000 mg PO DAILY 07/02/23
vakp-bxe-ylcpc-mkilbcnez-sxqhiqmb-msvc-pectin 1,000 mg tablet (Fiber 6) 4 tab PO PRN PRN constipation 07/02/23
furosemide 40 mg tablet (Lasix) 40 mg PO BID #0 tabs 07/31/23
losartan 25 mg tablet 25 mg PO DAILY #90 tabs 07/31/23
cranberry 1 cap PO DAILY 09/05/23
Lactobac no.2-Bifidobac no.1-S. thermo 112.5 billion cell capsule (Visbiome) 1 cap PO DAILY 09/09/23
aspirin 81 mg tablet,delayed release 243 mg PO ONCE 09/09/23
Review of Systems
-
History Source: Patient
Constitutional: Denies Fever or Weight Loss
Respiratory: Reports Trouble Breathing; Denies Cough or Hemoptysis
Cardiac: Denies Chest Pain
Abdomen/GI: Denies Abdominal Pain
: Denies Dysuria or Frequency
Musculoskeletal: Denies Joint Pain
Skin: Denies Itching
Neurological: Denies Dizzy or Headache
Hematologic/Lymphatic: Denies Bleeding
Psych: Reports Calm
Physical Exam
Vital Signs
Vital Signs
Temp Pulse Resp BP Pulse Ox
97.5 F 74 35 122/55 100
09/09/23 13:01 09/09/23 14:00 09/09/23 14:00 09/09/23 14:00 09/09/23 14:00
Physical Exam
General: Well Nourished and Comfortable
HEENT: NormoCephalic and Anicteric
Respiratory: Crackles
Cardiac: Regular Rhythm and Murmur (, MR)
GI: Soft, Non Tender and Non Distended
Skin: Warm and Dry
Neuro: Awake, Alert and Oriented
Psych: Calm
Laboratory Results
-
09/09/23 13:28
09/09/23 13:28
Laboratory Results
PT 21.2 Sec (11.4-14.6) H 09/09/23 13:28
INR 1.85 09/09/23 13:28
APTT 44.8 Sec (23.4-35.0) H 09/09/23 13:28
Total Bilirubin Cancelled 09/09/23 13:28
AST Cancelled 09/09/23 13:28
ALT Cancelled 09/09/23 13:28
Alkaline Phosphatase Cancelled 09/09/23 13:28
Troponin I < 0.012 ng/ml 09/09/23 13:28
Data Reviewed
-
Lab Data: Labs Reviewed by me, Discussed with Physician and Discussed with Patient
Impression/Plan
-
# Acute hypoxic respiratory insufficency
- Currently on 2L O2 oxygen & sat 98% ( 85% at POA)
- wean o2 as tolerated
- 1 time IV lasix 80mg in ER
- CXR: Persistent, unchanged patchy bilateral airspace opacities which may represent multifocal pneumonia, pulmonary edema, underlying interstitial lung disease, or some combination thereof
# Acute on chronic Hyponatremia
- Likly hypervolemic
- IV Lasix given
# Acute on chronic HFpEF
- proBnp 3750
- CXR Pulmonary edema
- Iv lasix 80mg in ER
- trops negative x1
- daily weight and I & Os
#Paroxysmal atrial fibrillation, status post ablation 2016
- pharmacological therapy with Metoprolol Succinate, oral anticoagulation with Xarelto( currently held because of planned procedure)
- continue ASA
#Mitral valve regurgitation- scheduled for surgery for 09/11/23
- cardiothoracic surgery consult for updates
#Hypertension. - continue toprol and losartan
#Hyperlipidemia.
#Sick sinus syndrome with syncope, status post Medtronic dual chamber pacemaker insertion, 2013, and generator change 07/02/2023.
#Pulmonary hypertension.
#Venous varicosities.
#Interstitial lung disease.
#GERD.
#Hiatal hernia.
#Irritable bowel disease.
#Fatty liver disease.
#Hypothyroidism.
#Mild anemia.
#Chronic dizziness.
#Osteopenia.
#Hyponatremia, improving with recent fluid restriction and holding of Lexapro.
Code: Limited DNR
DVT prophylaxis: SCD and lovenox
[2023-09-09] MEDS: ASPIR LOW (ENTERIC COATED) PO (19:13)
--- NOTE | 2023-09-09 19:15 | PTCARENOTE ---
Received patient from ED. Oriented to room. A Paced on the monitor. VSS. Ambulated to bathroom. 2L O2 nasal cannula, oxygen 95%. Admission assessment completed.
[2023-09-09] MEDS: TOPROL XL 50 MG PO (20:15)
[2023-09-09] MEDS: LOVENOX 40 MG SC (20:16)
[2023-09-09 21:13] LABS: Urine Albumin Negative (Neg - Trace); Urine Bilirubin Negative (Negative); Urine Character Clear (Clear); Urine Color Yellow; Urine Glucose Negative (Negative); Urine Ketone Negative (Negative); Urine Leukocyte 2+ (Negative); Urine Nitrite Negative (Negative); Urine Occult Blood Trace (Negative); Urine Urobilinogen Negative (Neg - 1+)
[2023-09-09 21:21] LABS: Urine Red Blood Cell 30-40 /HPF (0-2); Urine Squamous Cell 0-2 /LPF (Few)
[2023-09-09 21:22] LABS: Urine Bacteria Few (Negative)
--- NOTE | 2023-09-09 21:30 | PTCARENOTE ---
Assumed care of pt from dayshift RN. Walking rounds completed. Pt AAOx3. Follows commands appropriately. Pt A-paced on the monitor. HR 70s. BP stable. Palpable pulses throughout. No edema. Pt on 2 L NC. POX 96%. Lung sounds clear throughout. Abdomen
soft/nontender. +BS. Pt voiding w/o issue. Urine sample collected and sent to lab. Right PIV clean/dry/intact. No c/o pain at this time. See worklist for full nursing assessment. Call velázquez within reach.
[2023-09-09] MEDS: LIPITOR 10 MG PO (22:15)
[2023-09-10 03:22] VITALS: BP 123/69
[2023-09-10 04:31] LABS: Hematocrit 32.5 % (37.0-47.0); Hemoglobin 11.6 g/dL (12.0-16.0); Mean Corp Hgb Conc. 35.7 g/dL (33.0-37.0); Mean Corpuscular Hgb 30.4 pg (27.0-31.0); Mean Corpuscular Volume 85.3 fL (81.0-99.0); Mean Platelet Volume 9.8 fL (7.4-10.4); Platelet Count 272 10^3/uL (130-400); Red Blood Cell Count 3.81 10^6/uL (4.20-5.40); Red Cell Dist. Width 13.8 % (11.5-14.5); White Blood Cell Count 9.2 10^3/uL (4.8-10.8)
[2023-09-10 04:51] LABS: ALT (SGPT) 20 U/L (0-35); AST (SGOT) 32 U/L (14-36); Albumin 3.6 g/dl (3.5-5.0); Alkaline Phosphatase 82 U/L (38-126); Blood Urea Nitrogen 14 mg/dl (7-17); Calcium 9.7 mg/dl (8.4-10.2); Carbon Dioxide 26 mmol/L (22-30); Chloride 96 mmol/L (98-107); Estimated Creatinine Clearance 41 ml/min; Glucose 86 mg/dl (70-99); Potassium 3.7 mmol/L (3.5-5.1); Sodium 131 mmol/L (135-145); Total Bilirubin 0.9 mg/dl (0.2-1.3); Total Protein 7.1 g/dl (6.3-8.2); eGFR > 60.00
[2023-09-10] MEDS: SYNTHROID 100 MCG PO (06:11)
[2023-09-10 06:28] VITALS: BMI 20.6
--- NOTE | 2023-09-10 07:21 | W.PN.HOSP.TC ---
Addendum entered and electronically signed by Ron Collazo MD 09/10/23 09:47:
I saw and evaluated the patient. I reviewed the resident�s note and agree with findings and plan as documented in the resident�s note.
Denies shortness of breath.
NAD, awake and alert, appears chronically ill/malnourished
RRR, normal S1/S2, +S4, no JVD, 1/6 holosystolic murmur
rales in the L base
remains +BS/soft/NT/ND
CN2-12 intact
no LE edema
ProBNP 3750
Trop < 0.012
CXR: Persistent, unchanged patchy bilateral airspace opacities which may represent multifocal pneumonia, pulmonary edema, underlying interstitial lung disease, or some combination thereof. Findings are grossly unchanged since 09/02/2023. No new focal
consolidation.
ECG (read by me): A-paced with PVCx @ 77, nl axis, 1st deg ABV (210ms), nl QRS/QTc, TWi III, aVF, V3-V4
07/31/23 LHC/RHC: No obstructive CAD, elevated right left-sided filling pressures with severe pulmonary hypertension, significantly elevated systemic and pulmonary vascular resistance.
07/31/23 GONZALO: EF 60-65%, normal RV sz/fxn. Thickened mitral leaflets with bileaflet prolapse. 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 Severe mitral regurgitation. Mild AR/TR.
Acute HFpEF:
-h/o PPM due to SSS
-exacerbated by severe MR
-not on NC O2 at home, 85% on RA on arrival, was on 4L NC O2, now weaned to RA
-Lasix 80mg IV given in ER
-cards following
-cont Lasix 40mg IV Q12H
-daily wts, I/Os
-cont BB
-case discussed with Dr. Hope. For Mitraclip on 09/11/23
PAF:
-holding Xarelto for Mitraclip
-cont BB
Essential HTN:
-cont BB/ARB
Acute on chronic hyponatremia:
-Na improved with diuresis
ILD, not in acute exac
Original Note:
Today's Communication/Plan
-
wean o2 as tolerated
cardio thoracic surgery consult pending
Continue IV Lasix
Assessment / Plan
Assessment / Plan
# Acute hypoxic respiratory insufficency
- Currently on 2L O2 oxygen & sat 98% ( 85% at POA)
- wean o2 as tolerated
- 1 time IV lasix 80mg in ER
- continue IV lasix 40mg Q12
- CXR: Persistent, unchanged patchy bilateral airspace opacities which may represent multifocal pneumonia, pulmonary edema, underlying interstitial lung disease, or some combination thereof
# Acute on chronic Hyponatremia
- Likly hypervolemic- improving
# Acute on chronic HFpEF
- proBnp 3750
- CXR Pulmonary edema
- Iv lasix 80mg in ER
- trops negative x1
- daily weight and I & Os
#Paroxysmal atrial fibrillation, status post ablation 2016
- pharmacological therapy with Metoprolol Succinate, oral anticoagulation with Xarelto( currently held because of planned procedure)
- continue ASA
#Mitral valve regurgitation- scheduled for Mitaclip for 09/11/23
- cardiothoracic surgery consult for updates
#Hypertension. - continue toprol and losartan
#Hyperlipidemia.
#Sick sinus syndrome with syncope, status post Medtronic dual chamber pacemaker insertion, 2013, and generator change 07/02/2023.
#Pulmonary hypertension.
#Venous varicosities.
#Interstitial lung disease.
#GERD.
#Hiatal hernia.
#Irritable bowel disease.
#Fatty liver disease.
#Hypothyroidism.
#Mild anemia.
#Chronic dizziness.
#Osteopenia.
#Hyponatremia, improving with recent fluid restriction and holding of Lexapro.
Code: Limited DNR
DVT prophylaxis: SCD and lovenox
Anticipated Discharge: 24 - 48 hours
Subjective/Interval History
-
Date of Service: September 10, 2023
Objective Data
-
Labs:
Laboratory Results
09/10/23
03:35
WBC 9.2
Hgb 11.6 L
Hct 32.5 L
Plt Count 272
Sodium 131 L
Potassium 3.7
Chloride 96 L
Carbon Dioxide 26
BUN 14
Creatinine 0.8
Glucose 86
Calcium 9.7
Total Bilirubin 0.9
AST 32
ALT 20
Alkaline Phosphatase 82
Vital Signs:
Vital Signs
Temp Pulse Resp BP Pulse Ox
97.8 F 89 16 123/69 99
09/10/23 03:22 09/10/23 06:15 09/10/23 03:22 09/10/23 03:22 09/10/23 03:22
I&O
09/09/23 09/10/23 09/11/23
06:59 06:59 06:59
Output Total 300 / 300
Balance -300 / -300
Review of Systems
-
History Source: Patient
Constitutional: Reports No Symptoms
Respiratory: Denies Cough
Cardiac: Denies Chest Pain
Abdomen/GI: Denies Abdominal Pain
Neuro: Denies Dizzy
Endocrine: Denies Polyuria
Hematologic / Lymphatic: Denies Bleeding
Physical Exam
-
General: Well Nourished and No Apparent Distress
HEENT: Normocephalic and Atraumatic
Respiratory: Crackles
Cardiac: Regular Rhythm and Murmur (, MR)
GI: Soft and Nontender
Skin: Warm and Dry
Neuro: Awake, Alert and Oriented
Psych: Calm
Data Reviewed
-
Labs: Labs Reviewed by me, Discussed with Physician and Discussed with Patient
[2023-09-10 07:29] VITALS: BP 129/66
[2023-09-10] MEDS: PROTONIX 40 MG PO (08:18)
[2023-09-10] MEDS: ASPIR LOW (ENTERIC COATED) 243 MG PO (08:19)
[2023-09-10] MEDS: COZAAR 25 MG PO (08:20)
[2023-09-10] MEDS: LOVENOX 40 MG SC (08:20)
[2023-09-10] MEDS: VITAMIN D3 (cholecalciferol) 25 MCG PO (08:20)
[2023-09-10] MEDS: TOPROL XL 50 MG PO (08:21)
[2023-09-10] MEDS: VISBIOME 1 CAP PO (08:21)
[2023-09-10] MEDS: VITAMIN C 1000 MG PO (08:22)
[2023-09-10] MEDS: LASIX 40 MG IV ×2 (08:23→17:35)
[2023-09-10] MEDS: KCL 20 MEQ PO (09:03)
--- NOTE | 2023-09-10 11:01 | W.PN.CARDCBS ---
Addendum entered and electronically signed by Chet Hope MD 09/10/23 12:44:
I saw and examined the patient.
The ASSAYER or PA's note was reviewed and I agree with the note.
Comment: General: Well developed, well nourished in NAD.
Neck: Supple, no JVD, HJR, carotids +2 B/L, no bruits bilaterally.
Heart: Non displaced PMI, RRR, 2/6 apical holosystolic murmur, No S3, S4, no rubs.
Lungs: Rhonchi at the bases
Extremities: No clubbing, cyanosis or edema bilaterally.
Neuro: Grossly nonfocal, awake, alert and oriented x3.
She appears comfortable. Will continue IV Lasix. For mitral clip on 09/10. Discussed with primary service.
Original Note:
Today's Communication / Plan
-
follow response to IV lasix
may require additional lasix PM
for mitraclip in AM
Impression / Plan
-
PCP: Dr. Garber
Cardiology: Dr. Borja
Impression:
Presented with SOB
Acute on chronic HFpEF
Paroxysmal atrial fibrillation
s/p PVI 11/08/2016
Chronic Xarelto anticoagulation
Severe MR
SSS s/p PPM 11/05/2013
Nonobstructive CAD
Hypothyroidism
Hypertension
Hyperlipidemia
GERD
Echo 04/08/2023: EF 60 to 65%, mild LVH, prolapse of posterior mitral leaflet with moderate eccentric MR, aortic sclerosis with mild AI, aortic sclerosis with mild AI, severe pulmonary hypertension, estimated PAP 68 mmHg
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
Plan:
-She has known severe mitral regurgitation and is planned for MitraClip 09/11/2023. NPO after midnight
-diuresing for acute CHF. now on RA. was on po lasix 40mg BID prior to admission, currently on IV lasix 40mg BID. Cr stable at 0.8. remains with crackles on exam. will consider giving additional lasix this afternoon to get patient as compensated as
possible preprocedure
-remains apaced on review of tele overnight
-Xarelto on hold for procedure 09/11/2023.
-Continue losartan and Toprol. Blood pressure and heart rate are stable.
-Troponin negative x 2
-repeat INR in AM preprocedure, was 1.85 on 09/08
-d/w nursing, CT surgery
HPI: Joann is an 87-year-old female with past medical history of paroxysmal atrial fibrillation, chronic HFpEF, sick sinus syndrome status post permanent pacemaker implantation, nonobstructive CAD, hypothyroidism, hypertension, hyperlipidemia, and
GERD. She has severe mitral regurgitation in addition it has been increasingly symptomatic with this. As outpatient, she has been arranged for MitraClip procedure which is currently scheduled for 09/11/2023. Over the past week, she has had
progressively worsening shortness of breath. She called the cardiology office today to report her symptoms and she was instructed to come to [facility] ER for evaluation and optimization prior to planned procedure. Workup in the emergency room reveals
evidence of acute heart failure. proBNP elevated at 3750. Her chest x-ray shows pulmonary edema. She was given a dose of IV Lasix in the ER and has been admitted for diuresis prior to MitraClip later this week.
Progress Note - Cable Placer
Subjective
Date of Service: September 10, 2023
denies CP, SOB. reports has not urinated since getting her lasix this AM.
Objective
Labs:
09/10/23 03:35
09/10/23 03:35
Labs
Hgb 11.6 g/dL (12.0-16.0) L 09/10/23 03:35
Hct 32.5 % (37.0-47.0) L 09/10/23 03:35
Plt Count 272 10^3/uL (130-400) 09/10/23 03:35
PT 21.2 Sec (11.4-14.6) H 09/09/23 13:28
INR 1.85 09/09/23 13:28
APTT 44.8 Sec (23.4-35.0) H 09/09/23 13:28
Sodium 131 mmol/L (135-145) L 09/10/23 03:35
Potassium 3.7 mmol/L (3.5-5.1) 09/10/23 03:35
BUN 14 mg/dl (7-17) 09/10/23 03:35
Creatinine 0.8 mg/dL (0.6-1.0) 09/10/23 03:35
Glucose 86 mg/dl (70-99) 09/10/23 03:35
Troponins
09/09/23
13:28
Troponin I < 0.012
Vital Signs and I&O:
Vital Signs
Temp Pulse Resp BP Pulse Ox
97.6 F 76 18 129/66 100
09/10/23 07:27 09/10/23 07:30 09/10/23 07:27 09/10/23 07:29 09/10/23 07:27
Vital Signs
Temp Pulse Resp BP Pulse Ox
97.6 F 76 18 129/66 100
09/10/23 07:27 09/10/23 07:30 09/10/23 07:27 09/10/23 07:29 09/10/23 07:27
Intake & Output
09/08/23 09/09/23 09/10/23 09/11/23
07:59 07:59 07:59 07:59
Output Total 300 / 300
Balance -300 / -300
Physical Exam
Physical Exam
GEN: No distress, awake, alert, oriented x3
HEENT: supple, anicteric, mmm, eomi
LUNGS: Crackles B/L bases, no wheezes
CV: Reg, S1/S2, 2/6 murmur
ABD: soft, BS+, NT/ND
EXT: No cyanosis, clubbing, edema
NEURO: Gross non-focal
SKIN: Warm, pink, dry. No rash
[2023-09-10 11:52] VITALS: BP 118/70
--- NOTE | 2023-09-10 12:55 | CM ---
Chart reviewed. Patient is independent of ADLS, lives alone in a apartment, 0 CLEMENCIA, 0 DME. Patient scheduled for a mitraclip 09/10. Plan is for the patient to return home. Patient's daughter will be staying with the patient after discharge. Plan
is for the patient to return home with daughter and CT Transitional RN. CM to follow
[2023-09-10 16:11] VITALS: BP 114/65
[2023-09-10] MEDS: FLUSH (NSS) 1 FLUSH IV (17:37)
--- NOTE | 2023-09-10 18:00 | PTCARENOTE ---
Pt received this awake and alert. Denies any sob. Room air sat 93 - 94%. OOB to the chair and the bathroom, gait steady. Lungs with bilateral base crackles. Voiding clear yellow urine.
[2023-09-10 20:00] VITALS: BP 86/58
[2023-09-10] MEDS: TOPROL XL PO (20:00)
--- NOTE | 2023-09-10 21:00 | PTCARENOTE ---
1st CHG shower completed
[2023-09-10] MEDS: LIPITOR 10 MG PO (21:40)
[2023-09-11] VITALS (18 sets, daily range): BP systolic 92–127; BP diastolic 41–71; BMI 20.3
[2023-09-11 05:38] LABS: Hematocrit 34.9 % (37.0-47.0); Hemoglobin 12.2 g/dL (12.0-16.0); Mean Corpuscular Volume 88.8 fL (81.0-99.0); Mean Platelet Volume 9.2 fL (7.4-10.4); Platelet Count 271 10^3/uL (130-400); Red Blood Cell Count 3.93 10^6/uL (4.20-5.40); Red Cell Dist. Width 13.7 % (11.5-14.5); White Blood Cell Count 8.6 10^3/uL (4.8-10.8)
[2023-09-11 05:43] LABS: INR 1.18
[2023-09-11] MEDS: PROTONIX 40 MG PO (05:52)
[2023-09-11] MEDS: SYNTHROID 100 MCG PO (05:52)
[2023-09-11] MEDS: BACTROBAN 2% OINTMENT 1 APPLIC NASAL (05:52)
[2023-09-11 05:55] LABS: Blood Urea Nitrogen 18 mg/dl (7-17); Calcium 9.9 mg/dl (8.4-10.2); Carbon Dioxide 27 mmol/L (22-30); Chloride 97 mmol/L (98-107); Estimated Creatinine Clearance 41 ml/min; Glucose 99 mg/dl (70-99); Potassium 3.7 mmol/L (3.5-5.1); Sodium 131 mmol/L (135-145); eGFR > 60.00
[2023-09-11 09:07] LABS: ACT-LR - POC 277 Seconds (116-155)
[2023-09-11 09:17] LABS: ACT-LR - POC 274 Seconds (116-155)
[2023-09-11 09:30] LABS: ACT-LR - POC 279 Seconds (116-155)
[2023-09-11 09:40] LABS: ACT-LR - POC 306 Seconds (116-155)
[2023-09-11 10:00] LABS: ACT-LR - POC 302 Seconds (116-155)
[2023-09-11] MEDS: TOPROL XL PO (10:07)
[2023-09-11] MEDS: PROTONIX PO (10:07)
[2023-09-11] MEDS: LASIX IV (10:07)
[2023-09-11] MEDS: VITAMIN C PO (10:07)
[2023-09-11] MEDS: VISBIOME PO (10:07)
[2023-09-11] MEDS: ASPIR LOW (ENTERIC COATED) PO (10:07)
[2023-09-11] MEDS: COZAAR PO (10:07)
[2023-09-11] MEDS: VITAMIN D3 (cholecalciferol) PO (10:08)
[2023-09-11 10:18] LABS: ACT-LR - POC 253 Seconds (116-155)
[2023-09-11 10:36] LABS: ACT-LR - POC 295 Seconds (116-155)
--- NOTE | 2023-09-11 10:53 | CM ---
Chart reviewed. Patient is in the OR. Patient is independent of ADLS, lives alone in a apartmen, 0 CLEMENCIA, 0 DME. Plan is for the patients daughter to stay with her when she is discharged to home. Plan is for the patient to return home with CT
Transitional RN. CM to follow
--- NOTE | 2023-09-11 11:21 | W.CVOR.SURPR ---
CVOR Surgeon Immed Pre Op
-
I have examined this patient prior to performance of the scheduled procedure.
The patient's condition is unchanged from the time of the dictated/written History and
Physical and the patient is able to undergo the scheduled procedure.
--- NOTE | 2023-09-11 12:07 | PTCARENOTE ---
Pt arrived from pathology laboratory aide into room 2262 at 1100. Pt is drowsy, remains awake and oriented. Pt with no complaints of pain. Post procedure plan of care reviewed with pt. Remains on bedrest at this time. Pt appears SR, EKG noting A paced. HR 70's. BP
125/59 MAP 78. Pulse oximetry 97% on 2L nasal cannula. Right groin site CDI. Pedal pulses palpable. Neurovascular assessment WNL. Right radial Amma in place. No gtts at this time. Post procedure EKG completed.
[2023-09-11] MEDS: THERAGRAN 1 TABLET PO (12:24)
[2023-09-11] MEDS: ANCEF 10 IV ×2 (12:24)
[2023-09-11] MEDS: LASIX 40 MG PO ×2 (12:24→16:22)
--- NOTE | 2023-09-11 12:35 | W.IMMPOSTOP ---
Addendum entered and electronically signed by Shay Sullivan MD 09/11/23 12:50:
[id number]
Original Note:
Surgical Immed Post Op Note
-
STRUCTURAL HEART PROCEDURE NOTE: MitraClip
Preoperative Dx:
Severe MR w/ flail at P2
Postoperative Dx:
Same
Procedures:
QIANA w/ XTW clip
Boiler Or Engine Operator:
Dr. Chantelle Walker
Cardiac Surgeon:
Dr. Shay Sullivan
GONZALO Nurse First Assist:
Dr. Dante Montiel
Anesthesia:
GET; Dr. Froy Cota
Findings:
Severe eccentric degenerative MR w/ flail at P2
Continued bvab-jn-buugfuer MR post initial grasp at central portion of A2/P2
Clip repositioned to slightly LATERAL position on A2/P2 w/ reduction of MR from severe to MILD
Mean gradient 2mmHg
Cath Data:
Start: 0819hrs, Deploy: 1023hrs, End: 1033hrs
FT: 28.9min, mGy: 126.51, DAP: 21.8539
Complications:
None
Condition:
Stable/guarded to CVICU
Extubated following procedure
--- NOTE | 2023-09-11 13:09 | PTCARENOTE ---
1220 right groin site dressing saturated. CT COLOR LABORATORY TECHNICIAN aware. Pressure held on groin site. labor contractor RN to bedside, pressure held and new pressure dressing in place. Site CDI. Reassessed, right groin oozing again. CT COLOR LABORATORY TECHNICIAN to bedside currently holding
pressure.
[2023-09-11] MEDS: ANCEF 5 IV (16:22)
--- NOTE | 2023-09-11 16:45 | PTCARENOTE ---
Right groin site remains CDI. Pedal pulses palpable. Right radial A line removed. Pt remains A paced with HR 70's. Pulse oximetry 99% on room air. Pt voided. Now OOB in chair.
--- NOTE | 2023-09-11 20:00 | PTCARENOTE ---
Received pt from dayshift; pt is resting comfortably in bed; pt is AAOx4, denies pain; 100% A-paced on monitor, VSS; heart sounds audible, radial and DP pulses palpable, no edema noted; lung sounds diminished throughout, spo2 98% ib 2 LNC; + BS x4
quadrants, abdomen, soft, non tender; pt voiding clear yellow urine; right femoral site dressing clean dry intact; PIVs maintained; plan is for D/C tomorrow, 09/12/23; call velázquez within reach; will continue to monitor.
[2023-09-11] MEDS: TOPROL XL 50 MG PO (20:29)
[2023-09-11] MEDS: KCL 40 MEQ PO (20:29)
[2023-09-11] MEDS: LIPITOR 10 MG PO (21:36)
[2023-09-12] VITALS (12 sets, daily range): BP systolic 91–127; BP diastolic 46–71; PULSE 70; O2SAT 91–96; BMI 21.0
--- NOTE | 2023-09-12 | PTCARENOTE ---
pt assessment unchanged; A-paced on monitor, VSS; pt resting comfortably in bed; call velázquez within reach; will continue to monitor.
--- NOTE | 2023-09-12 00:10 | W.PN.CT ---
Today's Communication / Plan
-
-No overnight events. Doing well. Remains A-paced in the 60-70s
-TTE pending today
-To continue atorvastatin, losartan, Toprol 50 mg, Lasix 40 mg BID (on Lasix 40mg BID prior to admission)
-To resume Xarelto this evening if no groin access site issues
-Not on NC O2 at home, 85% on RA on admission, was on 4L NC O2, now down to 2L NC O2
-IS/OOB/ambulate
-DC planning
Assessment / Plan
-
Sever eccentric degenerative MR with flail at p2 s/p QIANA w/ XTW Mitraclip with Dr. Sullivan POD #1
Post op mean gradient 2 mmHg now mild MR
Paroxysmal atrial fibrillation
SSS s/p PPM 11/05/2013
Nonobstructive CAD
Idiopathic pulmonary fibrosis
Hypothyroidism
Hyponatremia
Hypertension
Hyperlipidemia
GERD
Presented with SOB
Acute on chronic HFpEF
Acute respiratory insufficiency
Acute pulmonary edema
Subjective
Procedure
Transcatheter nvyk-cu-allc repair with XTW clip on 09/11/[address] Sullivan
-
Date of Service: September 12, 2023
No overnight events. Tolerating well.
Objective Data
-
PT 15.0 Sec (11.4-14.6) H 09/11/23 05:13
INR 1.18 09/11/23 05:13
APTT 44.8 Sec (23.4-35.0) H 09/09/23 13:28
Vital Signs
Vital Signs
Temp Pulse Resp BP Pulse Ox
97.7 F 73 20 127/63 99
09/11/23 22:00 09/11/23 22:00 09/11/23 20:00 09/11/23 20:21 09/11/23 22:00
CT Intake/Output/Weight
09/11/23 09/11/23 09/12/23
06:59 18:59 06:59
Output Total 100 / 400 250 / 250
Balance -100 / -400 -250 / -250
SaO2: 99
Physical Exam
-
General: Awake, Oriented and AOx3
Cardiovascular: Regular rate & rhythm, No Murmurs and No Rub
Respiratory: Clear and Equal
Incision: Dressing Intact (no edema or ecchymosis R groin)
Extremities: No Edema
Data Reviewed
-
Lab Results: Results Reviewed
Medications: Active Meds Reviewed
Chest X-Ray: Report Reviewed
ECG: Report Reviewed
[2023-09-12 03:59] LABS: Hematocrit 32.6 % (37.0-47.0); Hemoglobin 11.1 g/dL (12.0-16.0); Mean Corpuscular Hgb 30.8 pg (27.0-31.0); Mean Corpuscular Volume 90.6 fL (81.0-99.0); Mean Platelet Volume 9.4 fL (7.4-10.4); Platelet Count 238 10^3/uL (130-400); Red Cell Dist. Width 13.7 % (11.5-14.5); White Blood Cell Count 8.6 10^3/uL (4.8-10.8)
--- NOTE | 2023-09-12 04:00 | PTCARENOTE ---
Pt assessment unchanged; A-paced on monitor, VSS; pt resting comfortably; EKG obtained, labs drawn and sent; call velázquez within reach; will continue to monitor.
[2023-09-12 04:40] LABS: Blood Urea Nitrogen 19 mg/dl (7-17); Calcium 9.4 mg/dl (8.4-10.2); Carbon Dioxide 28 mmol/L (22-30); Chloride 97 mmol/L (98-107); Estimated Creatinine Clearance 36 ml/min; Glucose 104 mg/dl (70-99); Potassium 4.9 mmol/L (3.5-5.1); Sodium 131 mmol/L (135-145); eGFR > 60.00
[2023-09-12] MEDS: SYNTHROID 100 MCG PO (05:34)
[2023-09-12] MEDS: TOPROL XL 50 MG PO ×2 (07:40→20:03)
[2023-09-12] MEDS: COZAAR 25 MG PO (07:40)
[2023-09-12] MEDS: VITAMIN D3 (cholecalciferol) 25 MCG PO (07:40)
[2023-09-12] MEDS: THERAGRAN 1 TABLET PO (07:40)
[2023-09-12] MEDS: LASIX 40 MG PO (07:40)
[2023-09-12] MEDS: VISBIOME 1 CAP PO (07:40)
[2023-09-12] MEDS: PROTONIX 40 MG PO (07:40)
[2023-09-12] MEDS: VITAMIN C 1000 MG PO (07:40)
--- NOTE | 2023-09-12 07:59 | W.PN.ANS.POP ---
Anesthesia Post Operative
- Anesthesia Post Op Note
Vital Signs Stable-See Nursing Note: Yes
Airway Patent: Yes
Adequate Pain Control: Yes
Change in Mental Status: No
Current Postoperative Nausea & Vomiting: No
Anesthesia Complications: No
General Anesthetic Recall: No
Unplanned Admission: No
Post Op Hydration Adequate: Yes
--- NOTE | 2023-09-12 08:19 | PTCARENOTE ---
Assumed care of patient from second shift supervisor RN. AAO x 3. Denies pain. A paced on monitor. 2 L 98%. Pulses palpable. RT groin c,d,i. Plan for day discussed.
--- NOTE | 2023-09-12 10:29 | CM ---
Addendum entered by Elizabeth Lombardo 09/12/23 14:07:
Mrs. Henson qualifies for home 02. Telephone call to [employer] [facility] to make the referral. Sent referral to [facility].
Original Note:
Reviewed chart. Met with Mrs. Henson to review discharge plans. She states prior to admission she resides alone in a third floor apartment [facility]. She states she uses the elevator to get to her apartment. She states
prior to admission she was independent with ambulation and adls. She does not have any DME in the home. She states she goes to the dinning room for her meals. She ambulated 200 feet without assistance. She states her neighbors can check on her
and her son resides in [facility] and he will also check on her. We reviewed home visit by the Cardiothoracic Transitional Care Nurse. She is agreeable to a home visit. Will need home 02 assessment to see if she will need home 02. Reviewed home
02 with her if she qualifies for it. Medical work-up in progress. The discharge plan is to return home with a home visit by the Cardiothoracic Transitional Care Nurse when medically stable.
--- NOTE | 2023-09-12 11:31 | W.PN.CARDCBS ---
Addendum entered and electronically signed by Kleber Borja MD 09/12/23 15:13:
I saw and examined the patient.
The Basket Hand Braider's note was reviewed and I agree with the note.
Comment:
GEN: No distress, awake, Ox3
HEENT: supple, anicteric, mmm
LUNGS: scatt rhonchi
CV: Reg, S1/S2, 1/6 syst LSB, no gallop
ABD: soft, BS+, NT/ND
EXT: No edema
NEURO: Gross non-focal
SKIN: No rash
plan:
Echo today with preserved ejection fraction and MitraClip with only mild MR. PA pressure was markedly elevated at 65 to 70 mmHg.
Would recommend continued IV diuresis to try to reduce volume status as much as possible with elevated PA pressures.
May need oxygen upon discharge
Continue Toprol, Cozaar, and resume Xarelto.
Creatinine overall stable.
Original Note:
Today's Communication / Plan
-
s/p mitraclip
awaiting echo
resume xarelto tonight
wean supp O2, IV diuresis
Impression / Plan
-
PCP: Dr. Graber
Cardiology: Dr. Borja
Impression:
Presented with SOB
Acute on chronic HFpEF
Paroxysmal atrial fibrillation
s/p PVI 11/08/2016
Chronic Xarelto anticoagulation
Severe MR s/p mitraclip 09/11/23
SSS s/p PPM 11/05/2013
Nonobstructive CAD
Hypothyroidism
Hypertension
Hyperlipidemia
GERD
IPF
Echo 04/08/2023: EF 60 to 65%, mild LVH, prolapse of posterior mitral leaflet with moderate eccentric MR, aortic sclerosis with mild AI, aortic sclerosis with mild AI, severe pulmonary hypertension, estimated PAP 68 mmHg
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
Plan:
-she presented with acute CHF in setting of severe MR, awaiting mitraclip. she was diuresed
-she underwent mitraclip 09/11/23 with good result
-noted to remain with evidence of volume overload on exam and by echo. attempting to wean supp O2. currently back on po lasix 40mg BID, will place back on IV lasix and continue to diurese
-official echo report from 09/11 pending
-remains apaced on review of tele overnight
-resume xarelto 15mg QPM tonight. hgb 11.1
-Continue losartan and Toprol. Blood pressure and heart rate are stable.
-d/w nursing
HPI: Joann is an 87-year-old female with past medical history of paroxysmal atrial fibrillation, chronic HFpEF, sick sinus syndrome status post permanent pacemaker implantation, nonobstructive CAD, hypothyroidism, hypertension, hyperlipidemia, and
GERD. She has severe mitral regurgitation in addition it has been increasingly symptomatic with this. As outpatient, she has been arranged for MitraClip procedure which is currently scheduled for 09/11/2023. Over the past week, she has had
progressively worsening shortness of breath. She called the cardiology office today to report her symptoms and she was instructed to come to [facility] ER for evaluation and optimization prior to planned procedure. Workup in the emergency room reveals
evidence of acute heart failure. proBNP elevated at 3750. Her chest x-ray shows pulmonary edema. She was given a dose of IV Lasix in the ER and has been admitted for diuresis prior to MitraClip later this week.
Progress Note - Tonguer
Subjective
Date of Service: September 12, 2023
reports some sob with ambulation. no pain
Objective
Labs:
09/12/23 03:14
09/12/23 03:14
Labs
Hgb 11.1 g/dL (12.0-16.0) L 09/12/23 03:14
Hct 32.6 % (37.0-47.0) L 09/12/23 03:14
Plt Count 238 10^3/uL (130-400) 09/12/23 03:14
PT 15.0 Sec (11.4-14.6) H 09/11/23 05:13
INR 1.18 09/11/23 05:13
APTT 44.8 Sec (23.4-35.0) H 09/09/23 13:28
Sodium 131 mmol/L (135-145) L 09/12/23 03:14
Potassium 4.9 mmol/L (3.5-5.1) D 09/12/23 03:14
BUN 19 mg/dl (7-17) H 09/12/23 03:14
Creatinine 0.9 mg/dL (0.6-1.0) 09/12/23 03:14
Glucose 104 mg/dl (70-99) H 09/12/23 03:14
Troponins
09/09/23
13:28
Troponin I < 0.012
Vital Signs and I&O:
Vital Signs
Temp Pulse Resp BP Pulse Ox
98.6 F 89 20 120/58 98
09/12/23 08:00 09/12/23 08:00 09/12/23 08:00 09/12/23 07:21 09/12/23 08:20
Vital Signs
Temp Pulse Resp BP Pulse Ox
98.6 F 89 20 120/58 98
09/12/23 08:00 09/12/23 08:00 09/12/23 08:00 09/12/23 07:21 09/12/23 08:20
Intake & Output
09/10/23 09/11/23 09/12/23 09/13/23
07:59 07:59 07:59 07:59
Intake Total 480 / 480
Output Total 300 / 300 400 / 400 250 / 250
Balance -300 / -300 -400 / -400 -250 / 230 480 / 480
Physical Exam
Physical Exam
GEN: No distress, awake, alert, oriented x3
HEENT: supple, anicteric, mmm, eomi
LUNGS: Crackles B/L bases, no wheezes
CV: Reg, S1/S2, 1/6 murmur
ABD: soft, BS+, NT/ND
EXT: No cyanosis, clubbing, edema
NEURO: Gross non-focal
SKIN: Warm, pink, dry. No rash
--- NOTE | 2023-09-12 12:11 | PTCARENOTE ---
Continued attempts to wean oxygen. RT ambulating patient at present. Pulse ox dropping down to 80's on room air. VSS otherwise. Assessment otherwise unchanged from prior.
--- NOTE | 2023-09-12 14:00 | W.PN.UPDATE ---
Update Note
Progress Note Update
Patient with desaturation to 77% on room air with ambulation. Patient recovers to 92% with 2 L nasal cannula post ambulation. Due to hypoxia, patient qualifies for home O2 at 2 L nasal on discharge.
[2023-09-12] MEDS: LASIX 60 MG IV (14:06)
--- NOTE | 2023-09-12 17:00 | PTCARENOTE ---
Ambulating in room with oxygen in place. Denies SOB . Oxygen weaned down to 1 L 94% Voiding post lasix given. Assessment unchanged from prior. VSS
[2023-09-12] MEDS: XARELTO 15 MG PO (18:06)
--- NOTE | 2023-09-12 20:00 | PTCARENOTE ---
Received pt from dayshift; pt resting comfortably in bed, daughter at bedside; pt is AAOx4, denies pain; 100% A-paced on monitor, VSS; heart sounds audible, radial and DP pulses palpable, no edema noted, PPM A-paced; lungs diminished at b/l bases,
spo2 98% on 1 LNC; + BS x4 quadrants, abdomen, soft non tender; pt voiding clear yellow urine; right femoral site dressing clean, dry, and intact; 18g wrist PIV removed due to leaking, 22g PIV maintained; CHG wipes provided with new gown and tele
leads; call velázquez within reach; will continue to monitor.
[2023-09-12] MEDS: LIPITOR 10 MG PO (21:42)
[2023-09-13] VITALS (14 sets, daily range): BP systolic 87–122; BP diastolic 46–76; PULSE 75; O2SAT 63–85; BMI 20.6
--- NOTE | 2023-09-13 | PTCARENOTE ---
Pt assessment unchanged; pt resting comfortably in bed; NSR on monitor, VSS; call velázquez within reach; will continue to monitor.
--- NOTE | 2023-09-13 04:00 | PTCARENOTE ---
Pt assessment unchanged; A-paced, VSS; pt resting comfortably in bed; labs drawn and sent; call velázquez within reach; will continue to monitor.
[2023-09-13 04:28] LABS: Hematocrit 29.8 % (37.0-47.0); Hemoglobin 10.5 g/dL (12.0-16.0); Mean Corp Hgb Conc. 35.2 g/dL (33.0-37.0); Mean Corpuscular Hgb 30.4 pg (27.0-31.0); Mean Corpuscular Volume 86.4 fL (81.0-99.0); Mean Platelet Volume 9.3 fL (7.4-10.4); Platelet Count 227 10^3/uL (130-400); Red Blood Cell Count 3.45 10^6/uL (4.20-5.40); Red Cell Dist. Width 13.9 % (11.5-14.5); White Blood Cell Count 8.7 10^3/uL (4.8-10.8)
[2023-09-13 04:36] LABS: Blood Urea Nitrogen 14 mg/dl (7-17); Calcium 9.7 mg/dl (8.4-10.2); Carbon Dioxide 29 mmol/L (22-30); Chloride 97 mmol/L (98-107); Estimated Creatinine Clearance 47 ml/min; Glucose 103 mg/dl (70-99); Magnesium 1.9 mg/dl (1.6-2.3); Potassium 3.9 mmol/L (3.5-5.1); Sodium 130 mmol/L (135-145); eGFR > 60.00
--- NOTE | 2023-09-13 07:23 | W.PN.CT ---
Addendum entered and electronically signed by Shay Sullivan MD 09/13/23 09:16:
I saw and examined the patient.
The PA's note was reviewed and I agree with the note.
Comment:
Overall doing quite well. No complaints this morning. Patient continues to desaturate with activity and occasionally when at rest. She had a very good result with her MitraClip with her MR reduced to mild and mean gradient of 2 mmHg. I believe
she will benefit from additional diuresis, but her oxygen requirements may be secondary to her pulmonary fibrosis and long-term home oxygen therapy may be required. This has been arranged. Will plan for discharge planning for hopefully tomorrow.
Original Note:
Today's Communication / Plan
-
-pod #2
-no issues overnight, no complaints
-pOx 77% with ambulation yesterday - home O2 arranged
-pOx 95-98% on 1L
-possible d/c home today
Assessment / Plan
-
Sever eccentric degenerative MR with flail at p2 s/p QIANA w/ XTW Mitraclip with Dr. Sullivan POD #2
Post op mean gradient 2 mmHg now mild MR
Paroxysmal atrial fibrillation
SSS s/p PPM 11/05/2013
Nonobstructive CAD
Idiopathic pulmonary fibrosis
Hypothyroidism
Hyponatremia
Hypertension
Hyperlipidemia
GERD
Presented with SOB
Acute on chronic HFpEF
Acute respiratory insufficiency
Acute pulmonary edema
Discussed patient care with: Nursing and Care Team
Subjective
Procedure
Transcatheter [id number] repair with XTW clip on 09/11/[address] Sullivan
-
Date of Service: September 13, 2023
Objective Data
-
Lab Results
09/13/23 04:06
09/13/23 04:06
PT 15.0 Sec (11.4-14.6) H 09/11/23 05:13
INR 1.18 09/11/23 05:13
APTT 44.8 Sec (23.4-35.0) H 09/09/23 13:28
Vital Signs
Vital Signs
Temp Pulse Resp BP Pulse Ox
98.1 F 73 16 92/76 95
09/13/23 04:00 09/13/23 04:30 09/13/23 04:00 09/13/23 04:00 09/13/23 04:00
CT Intake/Output/Weight
09/12/23 09/13/23 09/13/23
18:59 06:59 18:59
Intake Total 960 / 960
Output Total 225 / 375 150 / 375
Balance 735 / 585 -150 / 585
SaO2: 95
Physical Exam
-
General: Awake and AOx3
Cardiovascular: Regular rate & rhythm, No Murmurs and No Rub
Respiratory: Other (coarse b/l)
Incision: Other (R groin: soft, nontender, no hematoma)
Extremities: No Edema (2+ DP b/l)
Data Reviewed
-
Lab Results: Results Reviewed
Medications: Active Meds Reviewed
Chest X-Ray: Report Reviewed and Image Reviewed
ECG: Report Reviewed and Image Reviewed
[2023-09-13] MEDS: TOPROL XL 50 MG PO ×2 (08:36→20:26)
[2023-09-13] MEDS: VITAMIN C 1000 MG PO (08:37)
[2023-09-13] MEDS: VITAMIN D3 (cholecalciferol) 25 MCG PO (08:37)
[2023-09-13] MEDS: VISBIOME 1 CAP PO (08:37)
[2023-09-13] MEDS: THERAGRAN 1 TABLET PO (08:37)
[2023-09-13] MEDS: SYNTHROID 100 MCG PO (08:37)
[2023-09-13] MEDS: LASIX 40 MG IV ×2 (08:37→16:00)
[2023-09-13] MEDS: PROTONIX 40 MG PO (08:37)
[2023-09-13] MEDS: COZAAR 25 MG PO (08:37)
--- NOTE | 2023-09-13 08:51 | PTCARENOTE ---
Assumed care of patient from overnight associate RN. AAO x 3 sitting up in the chair. Denies complaint. Wishes to go home today. A paced on monitor. Attempted on room air pulse ox 84-85% not sob at rest. Placed on 1 L NC with pulse ox of 96%. Pt has
crackles bilaterally in bases. No cough noted. Abdomen soft and non tender. RT groin c,d,i. Voiding in bathroom. Pulses palpable. Plan for day discussed.
--- NOTE | 2023-09-13 08:54 | W.PN.CARDCBS ---
Addendum entered and electronically signed by Kleber Borja MD 09/13/23 10:14:
I saw and examined the patient.
The Drier Belt Conveyor's note was reviewed and I agree with the note.
Comment:
GEN: No distress, awake, Ox3
HEENT: supple, anicteric, mmm
LUNGS: scatt rhonchi
CV: Reg, S1/S2, 02/23 syst LSB, no gallop
ABD: soft, BS+, NT/ND
EXT: No edema
NEURO: Gross non-focal
SKIN: No rash
Plan:
Echo with nl EF and mild MR s/p clip with gr of 2. PA ~ 65-70.
Would diurese with IV Lasix for another 24 hours to try and wean off oxygen
Incentive spirometry, ambulate
Cont Toprol/Losartan
Original Note:
Today's Communication / Plan
-
continue diuresis
wean supp O2. home O2 eval
will arrange OP cardiac follow up
Impression / Plan
-
PCP: Dr. Garber
Cardiology: Dr. Borja
Impression:
Presented with SOB
Acute on chronic HFpEF
Paroxysmal atrial fibrillation
s/p PVI 11/08/2016
Chronic Xarelto anticoagulation
Severe MR s/p mitraclip 09/11/23
SSS s/p PPM 11/05/2013
Nonobstructive CAD
Hypothyroidism
Hypertension
Hyperlipidemia
GERD
IPF
Chronic hyponatremia
Echo 04/08/2023: EF 60 to 65%, mild LVH, prolapse of posterior mitral leaflet with moderate eccentric MR, aortic sclerosis with mild AI, aortic sclerosis with mild AI, severe pulmonary hypertension, estimated PAP 68 mmHg
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
ECHO 09/12/2023: EF 55 to 60%, mild concentric LVH, stage II diastolic dysfunction, severely dilated right atrium, status post MitraClip functioning well with mean gradient of 2 mmHg, mild MR, mild AR, mild to moderate TR, PAP 65 to 70 mmHg
Plan:
-she underwent mitraclip 09/11/23 with good result. she reports symptomatic improvement post procedure
-noted to remain with evidence of volume overload by echo post mitraclip 09/11. continue IV lasix diuresis 40mg BID. Cr stable
-wean supp O2 as able. continues with desats with ambulation. for home O2 evaluation
-remains apaced on review of tele overnight
-xarelto 15mg QPM resumed 09/11. hgb 10.5. R groin site c/d/i
-Continue losartan and Toprol.
-for possible DC to home later today vs in AM
-PT/OT
-will arrange OP cardiac follow up
-d/w nursing
HPI: Joann is an 87-year-old female with past medical history of paroxysmal atrial fibrillation, chronic HFpEF, sick sinus syndrome status post permanent pacemaker implantation, nonobstructive CAD, hypothyroidism, hypertension, hyperlipidemia, and
GERD. She has severe mitral regurgitation in addition it has been increasingly symptomatic with this. As outpatient, she has been arranged for MitraClip procedure which is currently scheduled for 09/11/2023. Over the past week, she has had
progressively worsening shortness of breath. She called the cardiology office today to report her symptoms and she was instructed to come to [facility] ER for evaluation and optimization prior to planned procedure. Workup in the emergency room reveals
evidence of acute heart failure. proBNP elevated at 3750. Her chest x-ray shows pulmonary edema. She was given a dose of IV Lasix in the ER and has been admitted for diuresis prior to MitraClip later this week.
Progress Note - Plastics Spreading Machine Operator
Subjective
Date of Service: September 13, 2023
she reports feeling well and is eager for DC
Objective
Labs:
09/13/23 04:06
09/13/23 04:06
Labs
Hgb 10.5 g/dL (12.0-16.0) L 09/13/23 04:06
Hct 29.8 % (37.0-47.0) L 09/13/23 04:06
Plt Count 227 10^3/uL (130-400) 09/13/23 04:06
PT 15.0 Sec (11.4-14.6) H 09/11/23 05:13
INR 1.18 09/11/23 05:13
APTT 44.8 Sec (23.4-35.0) H 09/09/23 13:28
Sodium 130 mmol/L (135-145) L 09/13/23 04:06
Potassium 3.9 mmol/L (3.5-5.1) 09/13/23 04:06
BUN 14 mg/dl (7-17) 09/13/23 04:06
Creatinine 0.7 mg/dL (0.6-1.0) 09/13/23 04:06
Glucose 103 mg/dl (70-99) H 09/13/23 04:06
Vital Signs and I&O:
Vital Signs
Temp Pulse Resp BP Pulse Ox
97.8 F 73 16 103/65 96
09/13/23 08:00 09/13/23 08:45 09/13/23 08:00 09/13/23 07:50 09/13/23 08:46
Vital Signs
Temp Pulse Resp BP Pulse Ox
97.8 F 73 16 103/65 96
09/13/23 08:00 09/13/23 08:45 09/13/23 08:00 09/13/23 07:50 09/13/23 08:46
Intake & Output
09/11/23 09/12/23 09/13/23 09/14/23
07:59 07:59 07:59 07:59
Intake Total 960 / 1320 360 / 360
Output Total 400 / 400 250 / 250 375 / 375
Balance -400 / -400 -250 / 230 585 / 945 360 / 360
Physical Exam
Physical Exam
GEN: No distress, awake, alert, oriented x3
HEENT: supple, anicteric, mmm, eomi
LUNGS: Crackles B/L bases, no wheezes
CV: Reg, S1/S2, 1/6 murmur
ABD: soft, BS+, NT/ND
EXT: No cyanosis, clubbing, edema
NEURO: Gross non-focal
SKIN: Warm, pink, dry. No rash
--- NOTE | 2023-09-13 10:32 | CM ---
Reviewed chart. Met with Mrs. Henson to review discharge plans. She states she is feeling better and maybe able to go home soon. We reviewed the portable home 02 delivered to her room today between 11:00 am to 12:00 p.m. She states her son can be
at her home today to accept the concentrator at home. Prior to admission she resides alone in a third floor apartment with elevator. Prior to admission she was independent with ambulation and adls. She does not have any DME in the home. She has
neighbors and her son will be able to check on her when she goes home. Medical work-up in progress. The discharge plan is to return home with a home visit by the Cardiothoracic Transitional Care Nurse when medically stable.
--- NOTE | 2023-09-13 13:27 | PTCARENOTE ---
Resting in room, ambulating with steady gait. VSS. Remains in need of 1 L NC . Attempt at room air demonstrated 87% at rest. Assessment otherwise unchanged
--- NOTE | 2023-09-13 14:23 | PTCARENOTE ---
Pt rang call eber to inform RN that she just vomited. PT denies nausea, states she hasnt had a BM in 2 days and this happens at home when she needs to poop. Discussed with KANIKA TATE. Order obtained for Dulcolax. Will monitor.
--- NOTE | 2023-09-13 14:36 | PTCARENOTE ---
RN in to administer Dolcolax and and pt refused as she was just now able to produce a large formed bowel movement.
--- NOTE | 2023-09-13 16:39 | PTCARENOTE ---
Ambulating in room on 2 L, minimum SOB noted with exertion. VSS. Assessment other cornejo unchanged from prior.
[2023-09-13] MEDS: XARELTO 15 MG PO (18:47)
--- NOTE | 2023-09-13 20:30 | PTCARENOTE ---
Patient received resting in bed watching television. Family at bedside. Patient A+A+Ox3. No neurological deficits noted. No c/o pain or discomfort. O2 at 2L via NC. SaO2 97%. No c/o SOB. No s/s of respiratory distress. Pacemaker. 100%
A-Paced. Heart rate 70's. Patient with no c/o chest pain, pressure or discomfort. Normoactive bowel sounds. No BM. No c/o nausea. No vomiting. Voiding without difficulty. Ambulates to bathroom. Steady gait. Right groin dressing intact - No
hematoma, bleeding or oozing noted - Positive circulation, sensation and mobility to right lower extremity. Assessment as documented.
[2023-09-13] MEDS: LIPITOR 10 MG PO (21:27)
[2023-09-14] VITALS (7 sets, daily range): BP systolic 90–133; BP diastolic 51–70; PULSE 75; O2SAT 87–96; BMI 20.6
--- NOTE | 2023-09-14 | PTCARENOTE ---
Patient sleeping without difficulty. No further changes from previous assessment.
--- NOTE | 2023-09-14 02:16 | W.PN.CT ---
Today's Communication / Plan
-
-pod #3
-no issues overnight, no complaints
-diuresed with 40 iv bid Lasix yesterday (UO unmeasured)
-continue current meds
-home O2
-possible d/c home
Assessment / Plan
-
Sever eccentric degenerative MR with flail at p2- s/p QIANA w/ XTW Mitraclip on 09/11/[address] Sullivan POD #3
Post op mean gradient 2 mmHg now mild MR
Paroxysmal atrial fibrillation
SSS s/p PPM 11/05/2013
Nonobstructive CAD
Idiopathic pulmonary fibrosis
Hypothyroidism
Hyponatremia
Hypertension
Hyperlipidemia
GERD
Presented with SOB
Acute on chronic HFpEF
Acute respiratory insufficiency
Acute pulmonary edema
Discussed patient care with: Nursing and Care Team
Subjective
Procedure
Transcatheter [id number] repair with XTW clip on 09/11/[address] Sullivan
-
Date of Service: September 14, 2023
Objective Data
-
PT 15.0 Sec (11.4-14.6) H 09/11/23 05:13
INR 1.18 09/11/23 05:13
APTT 44.8 Sec (23.4-35.0) H 09/09/23 13:28
Vital Signs
Vital Signs
Temp Pulse Resp BP Pulse Ox
97.8 F 71 16 122/62 97
09/13/23 21:30 09/13/23 21:45 09/13/23 21:30 09/13/23 21:30 09/13/23 21:30
CT Intake/Output/Weight
09/13/23 09/13/23 09/14/23
06:59 18:59 06:59
Intake Total 960 / 1200 240 / 1200
Output Total 150 / 375 875 / 875
Balance -150 / 585 85 / 325 240 / 325
SaO2: 97
Physical Exam
-
General: Awake and AOx3
Cardiovascular: Regular rate & rhythm (a-paced), No Murmurs and No Rub
Respiratory: Other (coarse b/l)
Incision: Other (R groin: soft, nontender, no hematoma)
Extremities: No Edema (2+ DP b/l)
Data Reviewed
-
Lab Results: Results Reviewed
Medications: Active Meds Reviewed
Chest X-Ray: Report Reviewed and Image Reviewed
ECG: Report Reviewed and Image Reviewed
[2023-09-14] MEDS: SYNTHROID 100 MCG PO (05:52)
[2023-09-14 05:55] LABS: Hematocrit 31.3 % (37.0-47.0); Hemoglobin 10.9 g/dL (12.0-16.0); Mean Corp Hgb Conc. 34.8 g/dL (33.0-37.0); Mean Corpuscular Hgb 30.4 pg (27.0-31.0); Mean Corpuscular Volume 87.4 fL (81.0-99.0); Mean Platelet Volume 9.3 fL (7.4-10.4); Platelet Count 241 10^3/uL (130-400); Red Blood Cell Count 3.58 10^6/uL (4.20-5.40); Red Cell Dist. Width 13.7 % (11.5-14.5); White Blood Cell Count 8.7 10^3/uL (4.8-10.8)
--- NOTE | 2023-09-14 06:00 | PTCARENOTE ---
Patient A+A+Ox3. No neurological deficits noted. AM lab work collected and sent. Patient to bathroom to void, wash face, brush teeth. OOB to chair. Standing scale weight 51.8 kg. Right groin dressing intact - No hematoma, bleeding or oozing -
Positive circulation, sensation and mobility to right lower extremity. Patient with no c/o back or flank pain. Patient resting in recliner chair watching television. Assessment/Interventions as documented.
[2023-09-14 06:10] LABS: Blood Urea Nitrogen 19 mg/dl (7-17); Calcium 9.8 mg/dl (8.4-10.2); Carbon Dioxide 30 mmol/L (22-30); Chloride 97 mmol/L (98-107); Estimated Creatinine Clearance 47 ml/min; Glucose 93 mg/dl (70-99); Sodium 132 mmol/L (135-145); eGFR > 60.00
--- NOTE | 2023-09-14 07:50 | PTCARENOTE ---
assumed care of pt from previous shift RN, A paced on tele, VSS, + peripheral pulses, no edema. Lungs diminished, pox 96%on 1L NC. +BS, tolerating PO intake, voids spontaneously. PIV flushes easily. Dressing to right groin intact. Plan of care
reviewed w the pt and questions encouraged.
--- NOTE | 2023-09-14 09:01 | W.DCSUMMARY ---
Discharge Summary
Discharge Data
Date of Admission: 09/09/23
Date of Discharge: 09/14/23
-
Pending Results: No
Hospital Course
Primary care physician: Abelardo Garber
Outpatient director community organization: [facility]ja
Inpatient consultants: [facility] Cardiology
Procedures:
1. XTW mitral clip
Primary Diagnosis:
1. 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
Secondary Diagnoses:
1. Paroxysmal atrial fibrillation
2. SSS s/p PPM 11/05/2013
3. Nonobstructive CAD
4. Idiopathic pulmonary fibrosis
5. Hypothyroidism
6. Hyponatremia
7. Hypertension
8. Hyperlipidemia
9. GERD
10. Acute HFpEF d/t MR
HPI: 87-year-old female with a past medical history notable for idiopathic pulmonary fibrosis, paroxysmal atrial fibrillation, and mitral regurgitation, presented to [facility] emergency room on 09/09/2023 with acute shortness of
breath.
Hospital course: Diagnosed with HFpEF due to severe mitral regurgitation with flail P2 segment. Patient was aggressively diuresed and underwent MitraClip on 09/11/2023. She returned to CVICU on no pressor support. Right femoral access site was
oozy and manual pressure applied. A follow-up TTE was performed on 09/11 and reported EF of 55-60% with mitral valve mean gradient of 2 mmHg. Mitral regurgitation decreased from severe to mild with mild aortic insufficiency and mild to moderate
tricuspid regurgitation. Patient continued with IV diuretic and noted to have O2 desaturation to 77% with ambulation. Patient qualified for home O2 which was delivered to her home on 09/12. Patient continued to do well with weight decreasing from
baseline of 54 kg to 51.8 kg on day of discharge. O2 sat was 97% on 2 L. Telemetry review stable with atrial paced rhythm. Patient will continue on Xarelto [address] Medina's Coding Director note and Lasix 40 mg twice daily as discussed with
cardiology. Patient ambulated in hallways and is deemed stable for discharge to home with home oxygen.
Home medication changes:
Omeprazole to Protonix
Stop aspirin, continue Xarelto only
Discharge Plan
-
Patient Disposition: Home (Routine Discharge)
Discharge Diagnosis/Procedures: MitraClip
Condition: Good
Diet: Restrict fluids to 48 oz
Activity: No strenuous activity
Driving Restrictions: No driving for 2 weeks
Bathing Restrictions: OK to Shower
Blood Work: BMP/CBC in 1 week
Others Tests: spot pulse oximetry check
Other Services: Cardiac Rehab
Specialty Instructions: Weigh Daily- Call MD for wt gain/loss 3 lbs overnight/5 lbs in 1 week
Activity Restrictions/Additional Instructions:
[facility]

Instructions: Fluid restriction
Stand Alone Forms: DC Instructions- Cath/EP Lab
Referrals:
CT Transitional Care Nurse [Outside] (The Cardiothoracic Transitional Care Nurse will call you to set up a visit in 1-2 days.)
Amanda Carpio CRNP [Specified Professional Personl] - 09/30/23 8:40 am
Abelardo Garber DO [Family Provider] -
Prescriptions:
New
acetaminophen 325 mg Tablet
650 mg PO Q4HPRN PRN (Reason: BELTRAN, mild pain, or fever >101F) Qty: 0 0RF
pantoprazole 40 mg Tablet,Delayed Release (Dr/Ec)
40 mg PO DAILY Qty: 30 1RF
Xarelto 15 mg Tablet
15 mg PO QPM Qty: 60 1RF
Continued
atorvastatin 10 MG tablet
10 mg PO HS Qty: 0 0RF
metoprolol succinate 50 MG tablet extended release 24 hr
50 mg PO BID Qty: 0 0RF
Fiber 6 1,000 mg Tablet
4 tab PO PRN PRN (Reason: constipation)
losartan 25 mg tablet
25 mg PO DAILY Qty: 90 5RF
furosemide [Lasix] 40 mg Tablet
40 mg PO BID Qty: 0 0RF
ascorbic acid (vitamin C) [Vitamin C] 1,000 mg Tablet
1,000 mg PO DAILY Qty: 0 0RF
levothyroxine [Synthroid] 100 mcg Tablet
100 mcg PO DAILY Qty: 0 0RF
Visbiome 112.5 billion cell Capsule
1 cap PO DAILY Qty: 0 0RF
cranberry
1 cap PO DAILY Qty: 0 0RF
Changed
cholecalciferol (vitamin D3) 1,000 UNITS tablet
1,000 unit PO DAILY Qty: 0 0RF
Discontinued
omeprazole 40 mg Capsule,Delayed Release(Dr/Ec)
40 mg PO DAILY
aspirin 81 mg Tablet,Delayed Release (Dr/Ec)
243 mg PO ONCE
Patient Comments:
09/09/23: Patient took 3 baby aspirins before coming into ED, per instruction from her patient case coordinator.
Discharge Orders:
Discharge Patient (As Directed); Ordered 09/14/23
Ordered By: Vijaya Wong
Care Plan Goals
Care Plan Goals:
Problem: Readiness for enhanced knowledge related to diagnosis and treatment plan
Goal: Understand your diagnosis and treatment plan needs, including medications if applicable.
Instructions: Know your diagnosis, underlying causes and treatment plan options, including medications if applicable. Consult with your health care team to learn about your diagnosis and treatment plan, including medications if applicable.
Discharge Date and Time
Print Language: SOL[place] ISLANDER
[2023-09-14] MEDS: COZAAR 25 MG PO (09:03)
[2023-09-14] MEDS: VITAMIN C 1000 MG PO (09:03)
[2023-09-14] MEDS: PROTONIX 40 MG PO (09:03)
[2023-09-14] MEDS: VITAMIN D3 (cholecalciferol) 25 MCG PO (09:03)
[2023-09-14] MEDS: TOPROL XL 50 MG PO (09:03)
[2023-09-14] MEDS: THERAGRAN 1 TABLET PO (09:03)
[2023-09-14] MEDS: LASIX 40 MG IV (09:03)
[2023-09-14] MEDS: VISBIOME 1 CAP PO (09:03)
--- NOTE | 2023-09-14 09:06 | W.PN.CARDCBS ---
Addendum entered and electronically signed by Dhruv Garcia DO 09/14/23 09:21:
I saw and examined the patient.
The Offset Plate Preparation Supervisor's note was reviewed and I agree with the note.
Comment:
Patient seen and examined his morning. No acute events overnight. Patient resting comfortably in chair denies any shortness of breath, chest discomfort, palpitations, edema, or weakness.
GEN: No distress, awake, alert, oriented x3
HEENT: supple, anicteric, mmm, eomi
LUNGS: Crackles RLB, no wheezes
CV: Reg, S1/S2, 1/6 murmur
ABD: soft, BS+, NT/ND
EXT: No cyanosis, clubbing, edema
NEURO: Gross non-focal
SKIN: Warm, pink, dry. No rash
Telemetry APVS
A/P as below
Patient diuresing well, agree with resume p.o. Lasix 40 mg twice daily
Outpatient follow-up arranged with cardiology
Stable for DC from cardiology standpoint
Original Note:
Today's Communication / Plan
-
po lasix 40mg BID
OP cardiac follow up arranged
ok for DC to home today with home O2
Impression / Plan
-
PCP: Dr. Garber
Cardiology: Dr. Borja
Impression:
Presented with SOB
Acute on chronic HFpEF
Paroxysmal atrial fibrillation
s/p PVI 11/08/2016
Chronic Xarelto anticoagulation
Severe MR s/p mitraclip 09/11/23
SSS s/p PPM 11/05/2013
Nonobstructive CAD
Hypothyroidism
Hypertension
Hyperlipidemia
GERD
IPF
Chronic hyponatremia
Echo 04/08/2023: EF 60 to 65%, mild LVH, prolapse of posterior mitral leaflet with moderate eccentric MR, aortic sclerosis with mild AI, aortic sclerosis with mild AI, severe pulmonary hypertension, estimated PAP 68 mmHg
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
ECHO 09/12/2023: EF 55 to 60%, mild concentric LVH, stage II diastolic dysfunction, severely dilated right atrium, status post MitraClip functioning well with mean gradient of 2 mmHg, mild MR, mild AR, mild to moderate TR, PAP 65 to 70 mmHg
Plan:
-she underwent mitraclip 09/11/23 with good result.
-feels well, eager for DC
-diuresed well post procedure. Cr remains stable. plan for DC on po lasix 40mg BID
-daily weights upon DC
-CHF education
-home O2 arranged
-remains in apaced rhythm upon review of tele
-xarelto 15mg QPM resumed 09/11. hgb 10.9.
-Continue losartan and Toprol.
-OP cardiac follow up arranged
-d/w nursing, CT surgery DIRECTOR OF PUBLICATIONS
HPI: Joann is an 87-year-old female with past medical history of paroxysmal atrial fibrillation, chronic HFpEF, sick sinus syndrome status post permanent pacemaker implantation, nonobstructive CAD, hypothyroidism, hypertension, hyperlipidemia, and
GERD. She has severe mitral regurgitation in addition it has been increasingly symptomatic with this. As outpatient, she has been arranged for MitraClip procedure which is currently scheduled for 09/11/2023. Over the past week, she has had
progressively worsening shortness of breath. She called the cardiology office today to report her symptoms and she was instructed to come to [facility] ER for evaluation and optimization prior to planned procedure. Workup in the emergency room reveals
evidence of acute heart failure. proBNP elevated at 3750. Her chest x-ray shows pulmonary edema. She was given a dose of IV Lasix in the ER and has been admitted for diuresis prior to MitraClip later this week.
Progress Note - It Lead
Subjective
Date of Service: September 14, 2023
eager for DC. no issues overnight
Objective
Labs:
09/14/23 05:27
09/14/23 05:27
Labs
Hgb 10.9 g/dL (12.0-16.0) L 09/14/23 05:27
Hct 31.3 % (37.0-47.0) L 09/14/23 05:27
Plt Count 241 10^3/uL (130-400) 09/14/23 05:27
PT 15.0 Sec (11.4-14.6) H 09/11/23 05:13
INR 1.18 09/11/23 05:13
APTT 44.8 Sec (23.4-35.0) H 09/09/23 13:28
Sodium 132 mmol/L (135-145) L 09/14/23 05:27
Potassium 4.0 mmol/L (3.5-5.1) 09/14/23 05:27
BUN 19 mg/dl (7-17) H 09/14/23 05:27
Creatinine 0.7 mg/dL (0.6-1.0) 09/14/23 05:27
Glucose 93 mg/dl (70-99) 09/14/23 05:27
Vital Signs and I&O:
Vital Signs
Temp Pulse Resp BP Pulse Ox
98.1 F 71 18 119/52 96
09/14/23 07:48 09/14/23 08:00 09/14/23 07:48 09/14/23 07:48 09/14/23 08:20
Vital Signs
Temp Pulse Resp BP Pulse Ox
98.1 F 71 18 119/52 96
09/14/23 07:48 09/14/23 08:00 09/14/23 07:48 09/14/23 07:48 09/14/23 08:20
Intake & Output
09/12/23 09/13/23 09/14/2324
07:59 07:59 07:59 07:59
Intake Total 960 / 1320 1200 / 1200
Output Total 250 / 250 375 / 375 875 / 875
Balance -250 / 230 585 / 945 325 / 325
Physical Exam
Physical Exam
GEN: No distress, awake, alert, oriented x3
HEENT: supple, anicteric, mmm, eomi
LUNGS: Crackles RLB, no wheezes
CV: Reg, S1/S2, 1/6 murmur
ABD: soft, BS+, NT/ND
EXT: No cyanosis, clubbing, edema
NEURO: Gross non-focal
SKIN: Warm, pink, dry. No rash
--- NOTE | 2023-09-14 12:01 | PTCARENOTE ---
pt for discharge, tele monitor removed, pt awaiting family
--- NOTE | 2023-09-14 15:17 | PTCARENOTE ---
discharge instructions, follow up appointments and medication list reviewed w the pt. Fluid restriction reviewed w the pt and her daughter. Questions encouraged.
== END 2023-09-14 15:20 | disposition home or self-care (01) | DRG 266 ==
LOC: CVICU 15:16
PROVIDERS: Internal Medicine Cardiovascular Disease; Nurse Practitioner; Physician Assistant; Physician Assistant Medical; ADMITTING PHYSICIAN Internal Medicine; ATTENDING PHYSICIAN Thoracic Surgery (Cardiothoracic Vascular Surgery); EMERGENCY PHYSICIAN Emergency Medicine; FAMILY PHYSICIAN Family Medicine; OTHER PHYSICIAN Internal Medicine Interventional Cardiology
PROC: 02UG3JZ Supplement Mitral Valve with Synthetic Substitute, Percutaneous Approach (ICD-10-PCS; 2023-09-11)
PROC: B24BZZ4 Ultrasonography of Heart with Aorta, Transesophageal (ICD-10-PCS; 2023-09-11)
DX: I08.3 Combined rheumatic disorders of mitral, aortic and tricuspid valves (principal); Z00.6 Encounter for examination for normal comparison and control in clinical research program; I50.33 Acute on chronic diastolic (congestive) heart failure; E87.1 Hypo-osmolality and hyponatremia; I11.0 Hypertensive heart disease with heart failure; I49.5 Sick sinus syndrome; I48.0 Paroxysmal atrial fibrillation; J84.112 Idiopathic pulmonary fibrosis; I27.20 Pulmonary hypertension, unspecified; E03.9 Hypothyroidism, unspecified; I25.10 Atherosclerotic heart disease of native coronary artery without angina pectoris; E78.00 Pure hypercholesterolemia, unspecified; K21.9 Gastro-esophageal reflux disease without esophagitis; R09.02 Hypoxemia; K76.0 Fatty (change of) liver, not elsewhere classified; D64.9 Anemia, unspecified; M85.80 Other specified disorders of bone density and structure, unspecified site; K58.9 Irritable bowel syndrome, unspecified; Z66 Do not resuscitate; Z95.0 Presence of cardiac pacemaker; Z82.49 Family history of ischemic heart disease and other diseases of the circulatory system; Z79.01 Long term (current) use of anticoagulants; Z79.82 Long term (current) use of aspirin
CPT/HCPCS: 33418; 71045; 80048; 80053; 81003; 81015; 83735; 83880; 84132; 84484; 85025; 85027; 85347; 85610; 85730; 87077; 87086; 87186; 93005; 93306; 93355; 96374; 99291; C1760; C1769

== ENCOUNTER → 2023-09-30 09:58 | Outpatient (REF) | payer MEDICARE, OTHER, SELFPAY | LOC: REG 09:58 | PROVIDERS: ATTENDING PHYSICIAN Nurse Practitioner; FAMILY PHYSICIAN Family Medicine | DX: N39.0 Urinary tract infection, site not specified (principal) | CPT/HCPCS: 87077; 87086; 87186 ==

== ENCOUNTER → 2023-10-15 09:31 | Outpatient (REF) | payer MEDICARE, OTHER, SELFPAY | LOC: RCS 09:31 | PROVIDERS: ATTENDING PHYSICIAN Internal Medicine Interventional Cardiology; FAMILY PHYSICIAN Family Medicine | DX: I34.0 Nonrheumatic mitral (valve) insufficiency (principal); I48.0 Paroxysmal atrial fibrillation; I50.30 Unspecified diastolic (congestive) heart failure | CPT/HCPCS: 93306 ==

== ENCOUNTER 2023-12-16 16:38 | Emergency (ER) | payer MEDICARE, OTHER, SELFPAY ==
[2023-12-16 16:40] VITALS: BP 119/62
[2023-12-16 16:57] VITALS: BP 106/55
[2023-12-16 17:00] VITALS: BP 103/66
--- NOTE | 2023-12-16 17:03 | ED.GENMED ---
History of Present Illness
General
Chief Complaint: Heart Rate Problem
Source: patient
Exam Limitations: none
Time Seen by Provider: 12/16/23 16:55
History of Present Illness
History of Present Illness:
See MDM
Past History
Past History
ED Past Medical History: Arrthythmia, GERD, HTN, Valvular disease and Hypothyroidism
ED Past Surgical History: Cardiac (pacemaker) and Tonsilectomy
Social History
Tobacco: Non-smoker
Alcohol: None
Drug: None
Personal: Single
Living: assisted living
Employment: Retired
Phy Exam
Physical Exam
Physical Exam:
See MDM
Course
Orders/Labs/Results
Orders:
Orders
12/16/23 16:39
ECG [Electrocardiogram (*1)] Urgent
Reason for Study: Atrial Fibrillation
EKG- Treatment ONCE
12/16/23 16:59
CBC/With Diff [Complete Blood Count/With Diff] Urgent
CMP [Comprehensive Metabolic Panel] Urgent
Magnesium Urgent
Comment: ADD ON
12/16/23 17:03
Add On- LAB Urgent
Tests Added?: magnesium level
Abnormal Lab Results
12/16/23
16:59
RBC 3.99 L 10^6/uL
(4.20-5.40)
Hgb 11.9 L g/dL
(12.0-16.0)
Hct 35.2 L %
(37.0-47.0)
Sodium 132 L mmol/L
(135-145)
Chloride 93 L mmol/L
(98-107)
BUN 26 H mg/dl
(7-17)
Glucose 135 H mg/dl
(70-99)
AST 48 H U/L
(14-36)
12/16/23 16:59
10/28/24 16:59
Vital Signs
Initial and Last Documented VS:
Initial Vital Signs
Temp Pulse Resp BP Pulse Ox
98.0 F 114 18 119/62 86
12/16/23 16:40 12/16/23 16:40 12/16/23 16:40 12/16/23 16:40 12/16/23 16:40
Last Documented Vital Signs
Temp Pulse Resp BP Pulse Ox
98.0 F 72 34 103/66 96
12/16/23 16:40 12/16/23 17:30 12/16/23 17:30 12/16/23 17:00 12/16/23 17:06
MDM/Problems Addressed
Differential Diagnosis Includes:
HPI and MDM Narrative:
88-year-old female presenting for evaluation of shortness of breath and dizziness. Her PCP called her because the pacemaker was interrogated indicating that she has been in rapid A-fib for several hours. On arrival to the emergency department,
patient states she is feeling much better. Patient is now in a paced rhythm. Patient states all symptoms have resolved. This is the second time she went to [facility] this month. She went to an outside hospital when she went back in A-fib. The plan
was to increase her metoprolol. She is now currently on 50 mg of metoprolol twice daily
Will obtain basic blood work but symptoms have resolved
Physical exam
General: Well appearing and non-toxic
HEENT: protecting airway
Neck: appears supple
CV: No evidence of cyanosis. Regular rate and rhythm
Resp: No accessory muscle use. Lungs clear
Abd: Non-distended
Extremities: No deformities. No leg edema
Neuro: alert
Psych: Normal affect
Skin: Intact
Problems Addressed including Acute and Chronic Conditions affecting care:
1. Symptomatic A fib
Acuity: acute
Prognosis: stable
Details: Patient took an extra dose of metoprolol prior to arrival and she is now in a paced rhythm. Will obtain basic blood work. All symptoms resolved
Updates
After prolonged observation, patient remains well-appearing nontoxic and remains in a paced rhythm. She has cardiology appointment soon. Discussed calling the office tomorrow regardless. She states that their conversation had indicated that they
may start antiarrhythmics
Differential Diagnosis (but not limited to): Symptomatic A-fib, ACS
Testing considered: Chest x-ray but lungs are clear
Drug therapy (if applicable): OTC meds, please see d/c instruction regarding Rx drugs
Amount and/or Complexity of Data Reviewed
Clinical info obtained from: Patient
External data reviewed: N/A
Labs I independently reviewed (but not limited to): Magnesium normal
Radiology: N/A
Pulse Ox: not hypoxic
EKG independently reviewed: Paced rhythm, normal axis, no STEMI
Svp Monetization: Paced rhythm
Critical Care: N/A
Risk of Complication:
Social Determinants of health: Good social support
Discussed with other providers: N/A
Escalation of Care includes Admit/Obs: After being observed in the Emergency Department, pt stable for discharge.
Occasional wrong word or 'sound a like' substitutions may have occurred due to the inherent limitations of voice recognition software. Read the chart carefully and recognize, using context, where substitutions have occurred.
*Critical Care Note
Total Time (30-74mins, 75-104mins- exclusive of procedures): Not Applicable
ED Attending Note
-
Portions of this chart may have been created with voice recognition software.� Occasional wrong word or��sound alike� substitutions may have occurred due to the inherent limitations of voice recognition software.
Discharge Plan
Departure
Patient Disposition: Home (Routine Discharge)
Date of Disposition: 12/16/23
Time of Disposition: 18:33
Patient with high blood pressure during this ER visit?: No
Discharge Problem:
Atrial fibrillation
Prescriptions:
No Action
atorvastatin 10 MG tablet
10 mg PO HS Qty: 0 0RF
metoprolol succinate 50 MG tablet extended release 24 hr
50 mg PO BID Qty: 0 0RF
Fiber 6 1,000 mg Tablet
4 tab PO PRN PRN (Reason: constipation)
losartan 25 mg tablet
25 mg PO DAILY Qty: 90 5RF
acetaminophen 325 mg Tablet
650 mg PO Q4HPRN PRN (Reason: BELTRAN, mild pain, or fever >101F) Qty: 0 0RF
pantoprazole 40 mg Tablet,Delayed Release (Dr/Ec)
40 mg PO DAILY Qty: 30 1RF
Xarelto 15 mg Tablet
15 mg PO QPM Qty: 60 1RF
furosemide [Lasix] 40 mg Tablet
40 mg PO BID Qty: 0 0RF
ascorbic acid (vitamin C) [Vitamin C] 1,000 mg Tablet
1,000 mg PO DAILY Qty: 0 0RF
levothyroxine [Synthroid] 100 mcg Tablet
100 mcg PO DAILY Qty: 0 0RF
cholecalciferol (vitamin D3) 1,000 UNITS tablet
1,000 unit PO DAILY Qty: 0 0RF
Visbiome 112.5 billion cell Capsule
1 cap PO DAILY Qty: 0 0RF
cranberry
1 cap PO DAILY Qty: 0 0RF
Referrals:
Abelardo Garber DO [Family Provider] -
Activity Restrictions/Additional Instructions:
Please call the cardiology office tomorrow. Please discuss if they want to see you earlier than December.
Please return for any worsening symptoms.
You may return at any time if you have further concerns.
Interventions
Interventions:
*Risk Screen - Suicide Last Done: 12/16/23 16:40
*Neglect/Abuse Screening Last Done: 12/16/23 16:40
ED- Cardiac Assessment Last Done: 12/16/23 17:06
ED- Pulmonary Assessment Last Done: 12/16/23 17:06
Discharge Date and Time
Print Language: PORTUGUESE
[2023-12-16 17:12] LABS: % Basophils 0.6 % (0-2); % Eosinophils 2.6 % (0-6); % Immature Granulocytes 0.3 % (0-0.5); % Lymphocytes 21.1 % (20.5-51.1); % Monocytes 6.1 % (1.7-9.3); % Neutrophils 69.3 % (42.2-75.2); Absolute Basophils 0.1 10^3/uL (0-0.2); Absolute Eosinophils 0.2 10^3/uL (0-0.7); Absolute Lymphocytes 1.9 10^3/uL (1.2-3.4); Absolute Monocytes 0.6 10^3/uL (0.1-0.6); Absolute Neutrophils 6.3 10^3/uL (1.4-6.5); Hematocrit 35.2 % (37.0-47.0); Hemoglobin 11.9 g/dL (12.0-16.0); Mean Corp Hgb Conc. 33.8 g/dL (33.0-37.0); Mean Corpuscular Hgb 29.8 pg (27.0-31.0); Mean Corpuscular Volume 88.2 fL (81.0-99.0); Mean Platelet Volume 9.4 fL (7.4-10.4); Nucleated Red Blood Cells % 0 %; Platelet Count 248 10^3/uL (130-400); Red Blood Cell Count 3.99 10^6/uL (4.20-5.40); Red Cell Dist. Width 13.1 % (11.5-14.5); White Blood Cell Count 9.1 10^3/uL (4.8-10.8)
[2023-12-16 17:22] LABS: ALT (SGPT) 24 U/L (0-35); AST (SGOT) 48 U/L (14-36); Alkaline Phosphatase 61 U/L (38-126); Blood Urea Nitrogen 26 mg/dl (7-17); Calcium 9.6 mg/dl (8.4-10.2); Carbon Dioxide 25 mmol/L (22-30); Chloride 93 mmol/L (98-107); Glucose 135 mg/dl (70-99); Potassium 4.4 mmol/L (3.5-5.1); Sodium 132 mmol/L (135-145); Total Bilirubin 0.5 mg/dl (0.2-1.3); Total Protein 8.1 g/dl (6.3-8.2); eGFR > 60.00
[2023-12-16 18:00] VITALS: BP 105/60
== END 2023-12-16 18:59 | disposition home or self-care (01) ==
LOC: EMR 16:38
PROVIDERS: EMERGENCY PHYSICIAN Student in an Organized Health Care Education/Training Program; FAMILY PHYSICIAN Family Medicine
DX: I48.91 Unspecified atrial fibrillation (principal); I10 Essential (primary) hypertension; E03.9 Hypothyroidism, unspecified; K21.9 Gastro-esophageal reflux disease without esophagitis; Z95.0 Presence of cardiac pacemaker; Z79.899 Other long term (current) drug therapy
CPT/HCPCS: 99284; 80053; 83735; 85025; 93005